=== PATIENT | female | born 1955 | race American Indian/Alaskan Native ===

== ENCOUNTER 2019-02-10 07:43 | Inpatient (IN) | payer MEDICAID ==
[2019-02-10] MEDS ORDERED: dilTIAZem 25 MG/5 ML INJ IV ONE (08:09)
--- NOTE | 2019-02-10 08:19 | Emergency Department Report ---
HPI - General Time Seen by Provider: 02/10/19 08:00 - [facility] HPI: Room 23 The patient is a 63-year-old female presenting with chief complaint of chest pain. Patient states she developed chest pain this morning that felt as though she was "hit with a rock." Patient denies shortness of breath, nausea/vomiting or diaphoresis. Patient states the chest pain lasts approximately 20 minutes. Patient also complains of pain in her left lower extremity for one week ED Past Medical Hx - Past Medical History Previous Medical History?: Yes Hx CVA: Yes Hx Deep Vein Thrombosis: Yes Hx GERD: Yes Hx Psychiatric Treatment: Yes (schizophrenia) Additional medical history: a fib, chronic leg pain - Surgical History Past Surgical History?: No - Family History Family history: no significant - Social History Smoking Status: Never Smoker Substance Use Type: None (patient denies illicit drug use) ED Review of Systems ROS: Stated complaint: LEG PAIN Other details as noted in HPI Constitutional: no symptoms reported Eyes: denies: eye pain ENT: denies: throat pain Respiratory: no symptoms reported Cardiovascular: chest pain Endocrine: no symptoms reported Gastrointestinal: denies: nausea, vomiting Genitourinary: denies: dysuria Musculoskeletal: denies: back pain Neurological: denies: headache Physical Exam - Physical Exam Vital Signs: Vital Signs 02/10/19 08:00 Temperature 98.1 F Pulse Rate 130 H Respiratory 14 Rate Blood Pressure 152/97 Blood Pressure 152/97 [Right] O2 Sat by Pulse 98 Oximetry Physical Exam: GENERAL: The patient is well-developed well-nourished female lying on stretcher not appearing to be in acute distress. [] HEENT: Normocephalic. Atraumatic. Extraocular motions are intact. Patient has moist mucous membranes. NECK: Supple. Trachea midline CHEST/LUNGS: Clear to auscultation. There is no respiratory distress noted. HEART/CARDIOVASCULAR: Irregularly irregular. There is tachycardia. There is no gallop rub or murmur. ABDOMEN: Abdomen is soft, nontender. Patient has normal bowel sounds. There is no abdominal distention. SKIN: There is no rash. There is mild left lower extremity edema. There is no diaphoresis. NEURO: The patient is awake, alert, and oriented. The patient is cooperative. The patient has normal speech MUSCULOSKELETAL: There is no evidence of acute injury. ED Course Vital Signs 02/10/19 08:00 Temperature 98.1 F Pulse Rate 130 H Respiratory 14 Rate Blood Pressure 152/97 Blood Pressure 152/97 [Right] O2 Sat by Pulse 98 Oximetry ED Medical Decision Making - Lab Data Result diagrams: 02/10/19 08:36 02/10/19 08:36 Laboratory Tests 02/10/19 02/10/19 02/10/19 08:36 08:36 08:36 WBC 4.1 L RBC 4.63 Hgb 14.7 H Hct 43.7 H MCV 94 MCH 32 MCHC 34 RDW 13.5 Plt Count 123 L Lymph % (Auto) 29.8 [place] % (Auto) 7.6 H Eos % (Auto) 0.3 Baso % (Auto) 0.7 Lymph # 1.2 [place] # 0.3 Eos # 0.0 Baso # 0.0 Seg Neutrophils % 61.6 Seg Neutrophils # 2.5 PT 12.7 INR 0.94 APTT 25.1 Sodium 142 Potassium 3.9 Chloride 101.1 Carbon Dioxide 21 L Anion Gap 24 BUN 11 Creatinine 0.7 Estimated GFR > 60 BUN/Creatinine Ratio 16 Glucose 89 Calcium 9.7 Magnesium 1.80 Total Creatine Kinase 247 H CK-MB (CK-2) 4.3 H CK-MB (CK-2) Rel Index 1.7 Troponin T < 0.010 NT-Pro-B Natriuret Pep 1554 H TSH Free T4 02/10/19 08:36 WBC RBC Hgb Hct MCV MCH MCHC RDW Plt Count Lymph % (Auto) [place] % (Auto) Eos % (Auto) Baso % (Auto) Lymph # [place] # Eos # Baso # Seg Neutrophils % Seg Neutrophils # PT INR APTT Sodium Potassium Chloride Carbon Dioxide Anion Gap BUN Creatinine Estimated GFR BUN/Creatinine Ratio Glucose Calcium Magnesium Total Creatine Kinase CK-MB (CK-2) CK-MB (CK-2) Rel Index Troponin T NT-Pro-B Natriuret Pep TSH 1.540 Free T4 1.47 H - EKG Data -: EKG Interpreted by Me Rate: tachycardia (137 bpm) - EKG Data When compared to previous EKG there are: changes noted Interpretation: other (atrial fibrillation with a rapid ventricular response) - Radiology Data Radiology results: report reviewed (CT chest (report discussed with radiologist via phone)), image reviewed (CT chest) CT chest (verbal report from radiologist) positive PE right upper lobe. Right upper lobe consolidation could be mass versus infection - Differential Diagnosis ACS, A. fib with RVR, DVT, PE, pericarditis Critical care attestation.: If time is entered above; I have spent that time in minutes in the direct care of this critically ill patient, excluding procedure time. ED Disposition Clinical Impression: Chest pain, Atrial fibrillation with rapid ventricular response, Pulmonary embolism Disposition: OP ADMIT IP TO THIS HOSP Is pt being admited?: Yes Does the pt Need Aspirin: No Condition: Fair Instructions: Chest Pain (ED) Time of Disposition: 11:25 (hospitalist paged (Dr Lopez))
[2019-02-10 08:46] LABS: Basophils % (Auto) 0.7 % (0.0-1.8); Eosinophils % (Auto) 0.3 % (0.0-4.3); Hematocrit 43.7 % (30.3-42.9); Hemoglobin 14.7 gm/dl (10.1-14.3); Lymphocytes # (Auto) 1.2 K/mm3 (1.2-5.4); Lymphocytes % (Auto) 29.8 % (13.4-35.0); Mean Corpuscular HGB Conc 34 % (30-34); Mean Corpuscular Volume 94 fl (79-97); Monocytes # (Auto) 0.3 K/mm3 (0.0-0.8); Monocytes % (Auto) 7.6 % (0.0-7.3); Platelet Count 123 K/mm3 (140-440); Red Blood Count 4.63 M/mm3 (3.65-5.03); Red Cell Distribution Width 13.5 % (13.2-15.2)
[2019-02-10 08:56] LABS: INR 0.94 (0.87-1.13); Partial Thromboplastin Time 25.1 Sec. (24.2-36.6)
[2019-02-10 09:16] LABS: Creatine Kinase MB 4.3 ng/mL (0.0-4.0)
[2019-02-10 09:20] LABS: BUN/Creatinine Ratio 16; Blood Urea Nitrogen 11 mg/dL (7-17); Calcium 9.7 mg/dL (8.4-10.2); Hemolysis Index 3
[2019-02-10 09:26] LABS: Free T4 (Free Thyroxine) 1.47 ng/dL (0.76-1.46)
--- NOTE | 2019-02-10 09:47 | Vascular Lab Report ---
DUPLEX DOPPLER LOWER EXTREMITY VEINS, LEFT INDICATION: pain. TECHNIQUE: Duplex doppler imaging was performed through the veins of the left lower extremity using venous compr ession and other maneuvers. COMPARISON: None available. FINDINGS: Common femoral vein: Nonocclusive thrombus. Superficial femoral vein: Occlusive thrombus. Popliteal vein: Occlusive thrombus. Calf veins: Occlusive thrombus. Additional findings: None. IMPRESSION: Extensive left lower extremity venous Doppler. Signer Name: Eliu Beltre MD Signed: 02/10/2019 9:42 AM Workstation Name: [id number]
[2019-02-10] MEDS ORDERED: dilTIAZem/D5W 100 MG/100 ML BAG IV SCH (10:00)
[2019-02-10] MEDS ORDERED: ENOXAPARIN 100 MG/1 ML INJ SUB-Q ONE (11:23)
--- NOTE | 2019-02-10 11:28 | Cat Scan Report ---
CTA CHEST WITH IV CONTRAST INDICATION: chest pain. TECHNIQUE: Axial CT images were obtained through the chest after injection of 100 mL Omnipaque 300 IV contrast. 3 plane MIP reconstructions were produced. All CT scans at this location are performed using CT dose reduction for ALARA by means of automated exposure control. COMPARISON: None available. FINDINGS: PULMONARY ARTERIES: The pulmonary arteries are well-opacified. There is segmental/subsegmental occlus peter PTE along the apical segment of the right upper lobe. The pulmonary arteries are otherwise patent . AORTA AND ARTERIES: The aorta is patent, normal in caliber and mildly calcified. Mild atherosclerosis is seen along the great vessels, which are patent. There is mild coronary atherosclerosis. MEDIASTINUM: No significant abnormality of the heart. No mass, lymphadenopathy or other significant a bnormality. LUNGS: There is biapical scarring. Posteriorly along the apical segment of the right lung is a massli ke area of consolidation versus a true solid lesion measuring 2.6 x 2.3 cm on image 72 of series 3. A noncalcified solid nodule is present along the superior segment of the right lower lobe measuring 8 mm on image 118 of series 3. Moderate emphysema is most significant along the right upper lobe. There is bibasilar atelectasis/scarring. No pneumothorax or pleural effusion is seen. ADDITIONAL FINDINGS: None. UPPER ABDOMEN: No acute findings. BONES: No significant osseous abnormality. IMPRESSION: 1. Right upper lobe segmental/subsegmental PTE without CT evidence of right heart strain. 2. Right upper lobe masslike consolidation versus a true solid lesion is nonspecific. Considerations include an evolving infarction, pneumonia and malignancy. Please correlate with the clinical findings . 3. 8 mm right lower lobe nodule as above. A follow-up CT of the chest without contrast in 6 months is recommended. 4. Additional findings as above. CRITICAL RESULT: Radiologist: Dr. Jay Time of Discovery: 10:15 LADLE PATCHER Time of Communication: 10:23 LADLE PATCHER Licensed Practitioner Receiving Report: Dr. Ba Read Back Performed: Yes. Signer Name: Tito Jay MD Signed: 02/10/2019 11:24 AM Workstation Name: [id number]
--- NOTE | 2019-02-10 21:47 | History and Physical Report ---
History of Present Illness Date of examination: 02/10/19 Date of admission: 02/10/19 11:29 Chief complaint: Sudden onset of chest pain lasting for 20 minutes prior to admission History of present illness: 53-year-old female with history of CVA, deep vein thrombosis, GERD and schizophrenia comes in for sudden onset of chest pain which lasted for about 20 minutes. It was a sharp pain 8 on a scale of 1-10. There is no diaphoresis, nausea or vomiting, shortness of breath. No radiation of the chest pain. No exacerbation or relieving factors. Patient also has chronic pain in left lower extremity. Past Medical History Previous Medical History?: Yes CVA: Yes Deep Vein Thrombosis: Yes GERD: Yes Psychiatric Treatment: Yes (schizophrenia) Afib, chronic leg pain Surgical History Past Surgical History?: No Family History Family history: no significant Social History Smoking Status: Never Smoker Substance Use Type: None (patient denies illicit drug use) Review of Systems ROS: Stated complaint: LEG PAIN Other details as noted in HPI Constitutional: no symptoms reported Eyes: denies: eye pain ENT: denies: throat pain Respiratory: no symptoms reported Cardiovascular: chest pain Endocrine: no symptoms reported Gastrointestinal: denies: nausea, vomiting Genitourinary: denies: dysuria Musculoskeletal: denies: back pain Neurological: denies: headache Medications and Allergies Allergies Allergy/AdvReac Type Severity Reaction Status Date / Time No Known Allergies Allergy Verified 02/10/19 09:47 Active Meds: Active Medications Diltiazem HCl (Cardizem/D5w 100mg/100ml) 100 mg in 100 mls @ 5 mls/hr IV TITR SINCERE; Protocol Last Titration: 02/10/19 16:48 Dose: 0 mg/hr, 0 mls/hr Documented by: Exam - Constitutional Vitals: Temp Pulse Resp BP Pulse Ox 98.3 F 114 H 16 118/76 98 02/10/19 20:20 02/10/19 20:20 02/10/19 20:20 02/10/19 20:20 02/10/19 20:20 General appearance: Present: mild distress, well-nourished - EENT Eyes: Present: PERRL ENT: hearing intact, clear oral mucosa - Neck Neck: Present: supple, normal ROM - Respiratory Respiratory effort: normal Respiratory: bilateral: CTA - Cardiovascular Heart rate: 130 Rhythm: irregularly irregular Heart Sounds: Present: S1 & S2. Absent: rub, click - Extremities Extremities: no ischemia, pulses intact, pulses symmetrical, No edema Peripheral Pulses: within normal limits - Abdominal General gastrointestinal: Present: soft, non-tender, non-distended, normal bowel sounds Female genitourinary: Present: normal - Integumentary Integumentary: Present: clear, warm, dry - Musculoskeletal Musculoskeletal: gait normal, strength equal bilaterally - Psychiatric Psychiatric: appropriate mood/affect, intact judgment & insight - Neurologic Neurologic: CNII-XII intact, moves all extremities - Allied Health Allied health notes reviewed: nursing, case management Results - Labs CBC & Chem 7: 02/10/19 08:36 02/10/19 08:36 Labs: Laboratory Last Values WBC 4.1 K/mm3 (4.5-11.0) L 02/10/19 08:36 RBC 4.63 M/mm3 (3.65-5.03) 02/10/19 08:36 Hgb 14.7 gm/dl (10.1-14.3) H 02/10/19 08:36 Hct 43.7 % (30.3-42.9) H 02/10/19 08:36 MCV 94 fl (79-97) 02/10/19 08:36 MCH 32 pg (28-32) 02/10/19 08:36 MCHC 34 % (30-34) 02/10/19 08:36 RDW 13.5 % (13.2-15.2) 02/10/19 08:36 Plt Count 123 K/mm3 (140-440) L 02/10/19 08:36 Lymph % (Auto) 29.8 % (13.4-35.0) 02/10/19 08:36 [place] % (Auto) 7.6 % (0.0-7.3) H 02/10/19 08:36 Eos % (Auto) 0.3 % (0.0-4.3) 02/10/19 08:36 Baso % (Auto) 0.7 % (0.0-1.8) 02/10/19 08:36 Lymph # 1.2 K/mm3 (1.2-5.4) 02/10/19 08:36 [place] # 0.3 K/mm3 (0.0-0.8) 02/10/19 08:36 Eos # 0.0 K/mm3 (0.0-0.4) 02/10/19 08:36 Baso # 0.0 K/mm3 (0.0-0.1) 02/10/19 08:36 Seg Neutrophils % 61.6 % (40.0-70.0) 02/10/19 08:36 Seg Neutrophils # 2.5 K/mm3 (1.8-7.7) 02/10/19 08:36 PT 12.7 Sec. (12.2-14.9) 02/10/19 08:36 INR 0.94 (0.87-1.13) 02/10/19 08:36 APTT 25.1 Sec. (24.2-36.6) 02/10/19 08:36 Sodium 142 mmol/L (137-145) 02/10/19 08:36 Potassium 3.9 mmol/L (3.6-5.0) 02/10/19 08:36 Chloride 101.1 mmol/L (98-107) 02/10/19 08:36 Carbon Dioxide 21 mmol/L (22-30) L 02/10/19 08:36 Anion Gap 24 mmol/L 02/10/19 08:36 BUN 11 mg/dL (7-17) 02/10/19 08:36 Creatinine 0.7 mg/dL (0.7-1.2) 02/10/19 08:36 Estimated GFR > 60 ml/min 02/10/19 08:36 BUN/Creatinine Ratio 16 % 02/10/19 08:36 Glucose 89 mg/dL (65-100) 02/10/19 08:36 Calcium 9.7 mg/dL (8.4-10.2) 02/10/19 08:36 Magnesium 1.80 mg/dL (1.7-2.3) 02/10/19 08:36 Total Creatine Kinase 247 units/L (30-135) H 02/10/19 08:36 CK-MB (CK-2) 4.3 ng/mL (0.0-4.0) H 02/10/19 08:36 CK-MB (CK-2) Rel Index 1.7 (0-4) 02/10/19 08:36 Troponin T < 0.010 ng/mL (0.00-0.029) 02/10/19 08:36 NT-Pro-B Natriuret Pep 1554 pg/mL (0-900) H 02/10/19 08:36 TSH 1.540 mlU/mL (0.270-4.200) 02/10/19 08:36 Free T4 1.47 ng/dL (0.76-1.46) H 02/10/19 08:36 - Imaging and Cardiology EKG: report reviewed (Atrial fibrillation with RVR, heart rate of 137.) Chest x-ray: report reviewed CT scan - chest: report reviewed Imaging and Cardiology: Duplex scan of lower extremity FINDINGS: Common femoral vein: Nonocclusive thrombus. Superficial femoral vein: Occlusive thrombus. Popliteal vein: Occlusive thrombus. Calf veins: Occlusive thrombus. Additional findings: None. IMPRESSION: Extensive left lower extremity venous Doppler. Chest CTA IMPRESSION: 1. Right upper lobe segmental/subsegmental PTE without CT evidence of right heart strain. 2. Right upper lobe masslike consolidation versus a true solid lesion is nonspecific. Considerations include an evolving infarction, pneumonia and malignancy. Please correlate with the c linical findings. 3. 8 mm right lower lobe nodule as above. A follow-up CT of the chest without contrast in 6 months is recommended. 4. Additional findings as above. Assessment and Plan Advance Directives: Yes (Full code) VTE prophylaxis?: Chemical Plan of care discussed with patient/family: Yes - Patient Problems (1) Atrial fibrillation with rapid ventricular response Current Visit: Yes Status: Acute Plan to address problem: Patient was initiated on diltiazem drip Patient was getting hypotensive Changed to amiodarone drip We will admit to ICU if necessary (2) Acute pulmonary embolism Current Visit: Yes Status: Acute Qualifiers: Acute cor pulmonale presence: without acute cor pulmonale Plan to address problem: Patient initiated on IV heparin protocol Vascular surgery consult requested Repeat CT chest at the time of discharge to rule out any malignancy (3) CHF (congestive heart failure) Current Visit: Yes Status: Chronic Qualifiers: Heart failure type: combined systolic and diastolic Plan to address problem: BNP elevated Lasix 40 mg once a day Cardiology consult Check echocardiogram for ejection fraction and valve function (4) Left leg DVT Current Visit: Yes Status: Acute Qualifiers: Affected thrombotic vein of extremity: femoral Chronicity: acute Qualified Code(s): I82.412 - Acute embolism and thrombosis of left femoral vein Plan to address problem: Patient on IV heparin protocol for DVT and PE (5) GERD (gastroesophageal reflux disease) Current Visit: Yes Status: Chronic Qualifiers: Esophagitis presence: without esophagitis Qualified Code(s): K21.9 - Gastro-esophageal reflux disease without esophagitis Plan to address problem: On famotidine 20 twice daily (6) History of CVA (cerebrovascular accident) Current Visit: Yes Status: Chronic Plan to address problem: Physical therapy if necessary (7) Schizophrenia Current Visit: Yes Status: Chronic Qualifiers: Schizophrenia type: unspecified Qualified Code(s): F20.9 - Schizophrenia, unspecified Plan to address problem: Home medications not reconciled Nursing staff was requested to put current home medications (8) DVT prophylaxis Current Visit: Yes Status: Acute Plan to address problem: Patient on heparin drip and GI prophylaxis
[2019-02-10] MEDS ORDERED: METOCLOPRAMIDE 10 MG/2 ML INJ IV PRN (21:57)
[2019-02-10] MEDS ORDERED: ACETAMINOPHEN 325 MG TAB PO PRN (21:57)
[2019-02-10] MEDS ORDERED: oxyCODONE /ACETAMINOPHEN 5-325MG TAB PO PRN (21:57)
[2019-02-10] MEDS ORDERED: HYDROmorphone 1 MG/1 ML INJ IV PRN (21:57)
[2019-02-10] MEDS ORDERED: ONDANSETRON 4 MG/2 ML INJ IV PRN (21:57)
[2019-02-10] MEDS ORDERED: HEPARIN 10,000 UNITS/10 ML VIAL IV ONE (22:00)
[2019-02-10] MEDS: FAMOTIDINE 20 MG TAB PO SCH (22:43)
[2019-02-10] MEDS: HEPARIN/ 0.45% NACL DRIP 25,000 UNIT/500 ML BAG IV SCH (22:43)
[2019-02-11] MEDS: AMIODARONE 900 MG in DEXTROSE 5% IN WATER 482 ML IV SCH (00:23)
[2019-02-11] MEDS: FUROSEMIDE 20 MG/2 ML INJ IV SCH (05:06)
[2019-02-11] MEDS ORDERED: FUROSEMIDE 40 MG/4 ML INJ IV SCH (06:00)
[2019-02-11 06:29] LABS: Hematocrit 37.8 % (30.3-42.9); Hemoglobin 12.8 gm/dl (10.1-14.3); Mean Corpuscular HGB Conc 34 % (30-34); Mean Corpuscular Volume 96 fl (79-97); Platelet Count 113 K/mm3 (140-440); Red Blood Count 3.93 M/mm3 (3.65-5.03); Red Cell Distribution Width 13.5 % (13.2-15.2)
[2019-02-11 06:37] LABS: Basophils % (Auto) 0.7 % (0.0-1.8); Eosinophils # (Auto) 0.1 K/mm3 (0.0-0.4); Eosinophils % (Auto) 2.6 % (0.0-4.3); Lymphocytes # (Auto) 1.6 K/mm3 (1.2-5.4); Lymphocytes % (Auto) 46.1 % (13.4-35.0); Monocytes # (Auto) 0.4 K/mm3 (0.0-0.8); Monocytes % (Auto) 12.1 % (0.0-7.3)
[2019-02-11 06:43] LABS: Partial Thromboplastin Time 28.3 Sec. (24.2-36.6)
[2019-02-11 06:44] LABS: INR 1.08 (0.87-1.13)
[2019-02-11 06:54] LABS: Alanine Aminotransferase 12 units/L (7-56); Albumin 3.6 g/dL (3.9-5); BUN/Creatinine Ratio 16; Blood Urea Nitrogen 14 mg/dL (7-17); Calcium 9.1 mg/dL (8.4-10.2); Hemolysis Index 19
[2019-02-11] MEDS: POTASSIUM CHLORIDE ER 10 MEQ TAB PO SCH (09:37)
[2019-02-11] MEDS: FAMOTIDINE 20 MG TAB PO SCH ×2 (09:37→22:08)
--- NOTE | 2019-02-11 12:36 | Consultation ---
History of Present Illness - Reason for Consult Consult date: 02/11/19 Pulmonary Embolus and Left Lower Extremity DVT Requesting physician: JAVIER BIRMINGHAM - History of Present Illness The patient is a 63-year-old female who had a CVA approximately 2 months ago resulting in left upper and lower extremity weakness who presented to the emergency department with complaints of chest pain. She states the chest pain with sudden and lasted approximately 20 minutes. She denied having any previous history of similar chest pain. Her workup revealed that she was in atrial f ibrillation and that she had a pulmonary embolus. Venous duplex of the left lower extremity revealed extensive DVT. The patient denies a previous history of DVT or noticing any recent swelling. She denies any prolonged travel or recent history of surgery or significant weight loss. Past History Past Medical History: atrial fib, DVT, hypertension, stroke, other (pulmonary embolus) Past Surgical History: No surgical history Family history: no significant family history Medications and Allergies Allergies Allergy/AdvReac Type Severity Reaction Status Date / Time No Known Allergies Allergy Verified 02/10/19 09:47 Active Meds: Active Medications Acetaminophen (Tylenol) 650 mg PO Q4H PRN PRN Reason: Pain MILD(1-3)/Fever >100.5/LORA Famotidine (Pepcid) 20 mg PO BID SINCERE Last Admin: 02/11/19 09:37 Dose: 20 mg Documented by: Furosemide (Lasix) 20 mg IV 0600 SINCERE Last Admin: 02/11/19 05:06 Dose: 20 mg Documented by: Hydromorphone HCl (Dilaudid) 1 mg IV Q3H PRN PRN Reason: Pain , Severe (7-10) Heparin Sodium/Sodium Chloride (Heparin/ 0.45% Nacl-25,000 Unit/500 Ml) 25,000 unit in 500 mls @ 21 mls/hr IV TITR SINCERE; Protocol Last Titration: 02/11/19 06:46 Dose: 1,200 units/hr, 24 mls/hr Documented by: Amiodarone HCl 900 mg/ (Dextrose) 500 mls @ 33.333 mls/hr IV DIRECT SINCERE; Protocol Last Titration: 02/11/19 06:40 Dose: 0.5 mg/min, 16.667 mls/hr Documented by: Metoclopramide HCl (Reglan) 10 mg IV Q6H PRN PRN Reason: Nausea And Vomiting Ondansetron HCl (Zofran) 4 mg IV Q3H PRN PRN Reason: Nausea And Vomiting Oxycodone/Acetaminophen (Percocet 5/325) 1 tab PO Q6H PRN PRN Reason: Pain, Moderate (4-6) Potassium Chloride (K-Dur) 10 meq PO QDAY [facility] Last Admin: 02/11/19 09:37 Dose: 10 meq Documented by: Sodium Chloride (Sodium Chloride Flush Syringe 10 Ml) 10 ml IV BID [facility] Last Admin: 02/11/19 09:37 Dose: 10 ml Documented by: Sodium Chloride (Sodium Chloride Flush Syringe 10 Ml) 10 ml IV PRN PRN PRN Reason: LINE FLUSH Review of Systems All systems: negative Exam - Constitutional Vitals: Temp Pulse Resp BP Pulse Ox 97.5 F L 129 H 18 109/84 99 02/11/19 08:02 02/11/19 08:02 02/11/19 08:02 02/11/19 08:02 02/11/19 08:02 General appearance: Present: no acute distress - Neck Neck: Present: supple - Respiratory Respiratory effort: normal - Cardiovascular Rhythm: irregularly irregular - Extremities Extremities: no ischemia Extremity abnormal: edema (Left lower extremity) - Abdominal General gastrointestinal: Present: soft, non-tender Results - Labs CBC & Chem 7: 02/11/19 05:37 02/11/19 05:37 Labs: Abnormal lab results 02/11/19 02/11/19 02/11/19 Range/Units 05:37 05:37 05:37 WBC 3.7 L (4.5-11.0) K/mm3 MCH 33 H (28-32) pg Plt Count 113 L (140-440) K/mm3 Lymph % (Auto) 46.1 H (13.4-35.0) % [place] % (Auto) 12.1 H (0.0-7.3) % Seg Neutrophils % 38.5 L (40.0-70.0) % Seg Neutrophils # 1.4 L (1.8-7.7) K/mm3 Heparin Anti-Xa Level 0.11 L (0.3-0.7) U.I./ml Glucose 101 H (65-100) mg/dL Albumin 3.6 L (3.9-5) g/dL - Imaging and Cardiology EKG: report reviewed, image reviewed Assessment and Plan The patient has a left leg DVT with a small PE that is no causing any right heart strain. She is tolerating anticoagulation at this time. Recommend converting to oral anticoagulation and continuing for a minimum of 6 months for treatment of the pulmonary embolus. Would also recommend a hypercoagulable workup although the DVT/PE may be secondary to her being more sedentary secondary to the CVA and left side weakness. She ultimately may require anticoagulation senior living if she is hypercoagulable or if she requires anticoagulation for management of her atrial fibrillation, will defer to cardiology for that recommendation.
[2019-02-11 12:52] LABS: Hematocrit 38.9 % (30.3-42.9); Hemoglobin 12.9 gm/dl (10.1-14.3)
--- NOTE | 2019-02-11 12:55 | Consultation ---
History of Present Illness Consult date: 02/11/19 Requesting physician: JAVIER BIRMINGHAM Consult reason: atrial fibrillation, congestive heart failure History of present illness: The pt is a 63-year-old female with history of CVA, deep vein thrombosis, GERD and schizophrenia. She is previously unknown to our practice. She presented with c/o chest pain for approx 1 day prior to arrival. She describes her chest pain as an intermittent left-sided lower chest sharp and stabbing pain. She denies any SOB, palpitations, n/v, diaphoresis, dizziness or syncope. Pt denies any kn own prior cardiac issues. Chest CTA shows RUL PE and RUL masslike consolidation v. solid lesion. Also found to have LLE DVT. Pt was noted to have atrial fibrillation with RVR and thus cardiology has been consulted. Pt has been initiated on heparin gtt and amio gtt. On evaluation, she is in AFib/AFlutter with HR 100s - 120s. Past History Past Medical History: DVT, hypertension, stroke, other (pulmonary embolus) Past Surgical History: No surgical history Family history: no significant family history Medications and Allergies Allergies Allergy/AdvReac Type Severity Reaction Status Date / Time No Known Allergies Allergy Verified 02/10/19 09:47 Active Meds: Active Medications Acetaminophen (Tylenol) 650 mg PO Q4H PRN PRN Reason: Pain MILD(1-3)/Fever >100.5/LORA Famotidine (Pepcid) 20 mg PO BID SINCERE Last Admin: 02/11/19 09:37 Dose: 20 mg Documented by: Furosemide (Lasix) 20 mg IV 0600 SINCERE Last Admin: 02/11/19 05:06 Dose: 20 mg Documented by: Hydromorphone HCl (Dilaudid) 1 mg IV Q3H PRN PRN Reason: Pain , Severe (7-10) Heparin Sodium/Sodium Chloride (Heparin/ 0.45% Nacl-25,000 Unit/500 Ml) 25,000 unit in 500 mls @ 21 mls/hr IV TITR SINCERE; Protocol Last Titration: 02/11/19 06:46 Dose: 1,200 units/hr, 24 mls/hr Documented by: Amiodarone HCl 900 mg/ (Dextrose) 500 mls @ 33.333 mls/hr IV DIRECT SINCERE; Pr otocol Last Titration: 02/11/19 06:40 Dose: 0.5 mg/min, 16.667 mls/hr Documented by: Metoclopramide HCl (Reglan) 10 mg IV Q6H PRN PRN Reason: Nausea And Vomiting Ondansetron HCl (Zofran) 4 mg IV Q3H PRN PRN Reason: Nausea And Vomiting Oxycodone/Acetaminophen (Percocet 5/325) 1 tab PO Q6H PRN PRN Reason: Pain, Moderate (4-6) Potassium Chloride (K-Dur) 10 meq PO QDAY [facility] Last Admin: 02/11/19 09:37 Dose: 10 meq Documented by: Sodium Chloride (Sodium Chloride Flush Syringe 10 Ml) 10 ml IV BID [facility] Last Admin: 02/11/19 09:37 Dose: 10 ml Documented by: Sodium Chloride (Sodium Chloride Flush Syringe 10 Ml) 10 ml IV PRN PRN PRN Reason: LINE FLUSH Review of Systems Constitutional: no weight loss, no weight gain, no fever, no chills, no sweats Ears, nose, mouth and throat: no ear pain, no nose pain, no sinus pressure, no sinus pain Cardiovascular: chest pain, no orthopnea, no palpitations, no rapid/irregular heart beat, no edema, no syncope, no lightheadedness, no shortness of breath, no dyspnea on exertion, no high blood pressure Respiratory: no cough, no shortness of breath, no dyspnea on exertion, no congestion, no wheezing, no pain on inspiration Gastrointestinal: no abdominal pain, no nausea, no vomiting, no diarrhea, no c onstipation, no change in bowel habits Genitourinary Female: no pelvic pain, no flank pain, no dysuria, no urinary frequency, no urgency Musculoskeletal: no neck stiffness, no neck pain, no shooting arm pain, no arm numbness/tingling, no low back pain, no shooting leg pain Integumentary: no rash, no pruritis, no redness, no sores, no wounds Neurological: no head injury, no paralysis, no weakness, no parathesias, no numbness, no tingling, no seizures, no syncope Psychiatric: no anxiety Endocrine: no cold intolerance, no heat intolerance Hematologic/Lymphatic: no easy bruising, no easy bleeding Allergic/Immunologic: no urticaria, no wheezing Physical Examination Vital Signs Temp Pulse Resp BP Pulse Ox 98.1 F 137 H 20 152/97 100 02/10/19 08:00 02/10/19 08:00 02/10/19 08:00 02/10/19 08:00 02/10/19 08:00 General appearance: no acute distress HEENT: Positive: PERRL, Normocephaly, Mucus Membranes Moist Neck: Positive: neck supple, trachea midline Cardiac: Positive: irregularly irregular, S1/S2 Lungs: Positive: Decreased Breath Sounds Neuro: Positive: Grossly Intact Abdomen: Negative: Tender Skin: Negative: Rash Musculoskeletal: No Pain Extremities: Absent: edema Results 02/11/19 12:24 02/11/19 05:37 Cardiac Enzymes 02/11/19 Range/Units 05:37 AST 15 (5-40) units/L Coagulation 02/11/19 Range/Units 05:37 PT 14.1 (12.2-14.9) Sec. INR 1.08 (0.87-1.13) APTT 28.3 (24.2-36.6) Sec. CBC 02/11/19 02/11/19 Range/Units 05:37 12:24 WBC 3.7 L (4.5-11.0) K/mm3 RBC 3.93 (3.65-5.03) M/mm3 Hgb 12.8 12.9 (10.1-14.3) gm/dl Hct 37.8 38.9 (30.3-42.9) % Plt Count 113 L 117 L (140-440) K/mm3 Lymph # 1.6 (1.2-5.4) K/mm3 Robeson # 0.4 (0.0-0.8) K/mm3 Eos # 0.1 (0.0-0.4) K/mm3 Baso # 0.0 (0.0-0.1) K/mm3 Comprehensive Metabolic Panel 02/11/19 Range/Units 05:37 Sodium 142 (137-145) mmol/L Potassium 3.6 (3.6-5.0) mmol/L Chloride 106.9 (98-107) mmol/L Carbon Dioxide 22 (22-30) mmol/L BUN 14 (7-17) mg/dL Creatinine 0.9 (0.7-1.2) mg/dL Glucose 101 H (65-100) mg/dL Calcium 9.1 (8.4-10.2) mg/dL AST 15 (5-40) units/L ALT 12 (7-56) units/L Alkaline Phosphatase 80 (35-129) units/L Total Protein 6.4 (6.3-8.2) g/dL Albumin 3.6 L (3.9-5) g/dL - Imaging and Cardiology Echo: report reviewed EKG: report reviewed, image reviewed Assessment and Plan Echo reviewed - EF 40-45%, LA mild to mod dilated, RV mildly dilated, RA mildly dilated, no evidence of RV strain. BPs are borderline low, will continue IV amio at this time. Pt is currently receiving heparin gtt in setting of PE, DVT and AFib. She would benefit from senior living systemic AC in regards to AFib. However, she is noted to have lung mass. Recommend pulmonary consultation - ? biopsy. Will defer initiation of NOAC until w/u is complete, cont heparin gtt in the interim. Further recs to follow per hospital course. The patient has been seen in conjunction with Dr. Marks who agrees with the assessment and plan of care. - Patient Problems (1) Acute pulmonary embolism Current Visit: Yes Status: Acute Qualifiers: Acute cor pulmonale presence: without acute cor pulmonale (2) Lung mass Current Visit: Yes Status: Acute (3) Atrial fibrillation with rapid ventricular response Current Visit: Yes Status: Acute (4) Chest pain Current Visit: Yes Status: Resolved (5) Left leg DVT Current Visit: Yes Status: Acute Qualifiers: Affected thrombotic vein of extremity: femoral Chronicity: acute Qualif ied Code(s): I82.412 - Acute embolism and thrombosis of left femoral vein (6) History of CVA (cerebrovascular accident) Current Visit: Yes Status: Chronic (7) Schizophrenia Current Visit: Yes Status: Chronic Qualifiers: Schizophrenia type: unspecified Qualified Code(s): F20.9 - Schizophrenia, unspecified (8) Cardiomyopathy Current Visit: Yes Status: Chronic
[2019-02-11] MEDS: HEPARIN/ 0.45% NACL DRIP 25,000 UNIT/500 ML BAG IV SCH (13:22)
--- NOTE | 2019-02-11 16:50 | Progress Note ---
Assessment and Plan / Atrial fibrillation with rapid ventricular response Patient on amiodarone and heparin drip cardiology consulted / Acute pulmonary embolism Patient initiated on IV heparin protocol Vascular surgery consult requested - no intervention needed /RUL masslike consolidation v. solid lesion Repeat CT chest at the time of discharge to rule out any malignancy Pulmonary consulted /Acute CHF (congestive heart failure) EF 40-45% BNP elevated Lasix 40 mg once a day Cardiology consulted / Left leg DVT Patient on IV heparin protocol for DVT and PE / GERD (gastroesophageal reflux disease) On famotidine 20 twice daily / History of CVA (cerebrovascular accident) Physical therapy if necessary /Schizophrenia Home medications not reconciled Nursing staff was requested to put current home medications / DVT prophylaxis Patient on heparin drip and GI prophylaxis Brief History: The pt is a 63-year-old female with history of CVA, deep vein thrombosis, GERD and schizophrenia presented with c/o chest pain for approx 1 day prior to arrival. Chest CTA shows RUL PE and RUL masslike consolidation v. solid lesion. Also found to have LLE DVT. Pt was noted to have atrial fibrillation with RVR and initiated on heparin gtt and amio gtt. Hospitalist Physical exam: GENERAL: well-developed and well-nourished AAF lying on bed appeared to be in no discomfort. HEENT: Normocephalic. Atraumatic. No conjunctival congestion or icterus. Patient has moist mucous membranes. NECK: Supple. Trachea midline. CHEST/LUNGS: Clear to auscultated bilaterally, breathing nonlabored. No wheezes crackles or rhonchi. HEART/CARDIOVASCULAR: Regular in rate and rhythm. S1 and S2 positive. ABDOMEN: Abdomen is soft, nontender. Patient has normal bowel sounds. SKIN: There is no rash. Warm and dry. NEURO: No focal motor deficit. Follows command. MUSCULOSKELETAL: No joint effusion or tenderness. EXTRIMITY: + LLE swelling, no cyanosis or clubbing. PSYCH: Cooperative. Subjective Date of service: 02/11/19 Interval history: Patient seen and examined. Medical records and medication list reviewed. No acute event overnight noted by the RN. Patient denies any chest pain or difficulty breathing. Patient is tolerating diet. Discussed plan of care at bedside with patient. Objective - Constitutional Vitals: Vital Signs - 12hr 02/11/19 02/11/19 02/11/19 08:02 09:00 12:03 Temperature 97.5 F L 98.5 F Pulse Rate 129 H 108 H 118 H Respiratory 18 18 Rate Blood Pressure 109/84 120/82 O2 Sat by Pulse 99 95 Oximetry - Labs CBC & Chem 7: 02/11/19 12:24 02/11/19 05:37 Labs: Abnormal lab results 02/11/19 02/11/19 02/11/19 Range/Units 05:37 05:37 05:37 WBC 3.7 L (4.5-11.0) K/mm3 MCH 33 H (28-32) pg Plt Count 113 L (140-440) K/mm3 Lymph % (Auto) 46.1 H (13.4-35.0) % Winston % (Auto) 12.1 H (0.0-7.3) % Seg Neutrophils % 38.5 L (40.0-70.0) % Seg Neutrophils # 1.4 L (1.8-7.7) K/mm3 Heparin Anti-Xa Level 0.11 L (0.3-0.7) U.I./ml Glucose 101 H (65-100) mg/dL Albumin 3.6 L (3.9-5) g/dL 02/11/19 Range/Units 12:24 WBC (4.5-11.0) K/mm3 MCH (28-32) pg Plt Count 117 L (140-440) K/mm3 Lymph % (Auto) (13.4-35.0) % Winston % (Auto) (0.0-7.3) % Seg Neutrophils % (40.0-70.0) % Seg Neutrophils # (1.8-7.7) K/mm3 Heparin Anti-Xa Level (0.3-0.7) U.I./ml Glucose (65-100) mg/dL Albumin (3.9-5) g/dL
[2019-02-12] MEDS: HEPARIN/ 0.45% NACL DRIP 25,000 UNIT/500 ML BAG IV SCH (04:02)
[2019-02-12] MEDS: AMIODARONE 900 MG in DEXTROSE 5% IN WATER 482 ML IV SCH (04:05)
[2019-02-12 04:31] LABS: Hematocrit 40.2 % (30.3-42.9); Hemoglobin 13.4 gm/dl (10.1-14.3)
[2019-02-12] MEDS: FUROSEMIDE 20 MG/2 ML INJ IV SCH (06:15)
[2019-02-12] MEDS: FAMOTIDINE 20 MG TAB PO SCH ×2 (09:35→21:12)
[2019-02-12] MEDS: POTASSIUM CHLORIDE ER 10 MEQ TAB PO SCH (09:35)
--- NOTE | 2019-02-12 09:58 | Progress Note ---
Assessment and Plan Will discontinue amiodarone drip and initiate PO amiodarone. Continue Heparin and other cardiac management. Will defer to neurology for recommendations regarding OAC. The patient has been seen in conjunction with Dr. Wolfe, who agrees with the assessment and plan. - Patient Problems (1) Acute pulmonary embolism Current Visit: Yes Status: Acute Qualifiers: Acute cor pulmonale presence: without acute cor pulmonale (2) Atrial fibrillation with rapid ventricular response Current Visit: Yes Status: Acute (3) Left leg DVT Current Visit: Yes Status: Acute Qualifiers: Affected thrombotic vein of extremity: femoral Chronicity: acute Qualified Code(s): I82.412 - Acute embolism and thrombosis of left femoral vein (4) Lung mass Current Visit: Yes Status: Acute Subjective Date of service: 02/12/19 Interval history: The patient is lying in bed in NAD. She provides only one-word answers to questions this morning. Per RN, she refused second IV that would allow for administration of heparin and amiodarone. Telemetry reviewed - afib in 120s. Objective Last Vital Signs Temp 98.4 F 02/12/19 07:34 Pulse 106 H 02/12/19 07:34 Resp 18 02/12/19 07:34 BP 136/97 02/12/19 07:34 Pulse Ox 93 02/12/19 07:34 - Physical Examination General: No Apparent Distress HEENT: Positive: PERRL, Normocephaly, Mucus Membranes Moist Neck: Positive: neck supple, trachea midline Cardiac: Positive: irregularly irregular Lungs: Positive: Normal Exam Neuro: Positive: Grossly Intact Abdomen: Positive: Unremarkable. Negative: Tender /Rectal: Other (deferred) Skin: Positive: Clear. Negative: Rash Musculoskeletal: No Pain Extremities: Present: normal. Absent: edema - Labs and Meds CBC 02/11/19 02/12/19 Range/Units 12:24 03:34 Hgb 12.9 13.4 (10.1-14.3) gm/dl Hct 38.9 40.2 (30.3-42.9) % Plt Count 117 L 125 L (140-440) K/mm3 - Imaging and Cardiology EKG: report reviewed, image reviewed Echo: report reviewed - Telemetry EKG Rhythm: Atrial Fibrillation
--- NOTE | 2019-02-12 12:21 | Progress Note ---
Assessment and Plan Assessment and plan: -- Atrial fibrillation with rapid ventricular response Patient on amiodarone and heparin drip Change amiodarone to oral,cardiology following --Acute pulmonary embolism Patient initiated on IV heparin protocol Vascular evaluated ,no intervention needed --Left leg DVT; IV heparin protocol for DVT and PE --RUL masslike consolidation v. solid lesion CT chest at the time of discharge to rule out any malignancy Pulmonary consulted --Acute systolic CHF (congestive heart failure) EF 40-45% Continue CHF medications, cardiology following --GERD (gastroesophageal reflux disease) On famotidine 20 twice daily --History of CVA (cerebrovascular accident) 3 months ago Physical therapy if necessary, check medical records from [place] --Schizophrenia: Continue current management --DVT prophylaxis Patient on heparin drip and GI prophylaxis Closely monitor and adjust management as needed [facility] from [place] Possible discharge in 1 to 2 days if stable Plan of care reviewed with the patient and her nurse History Interval history: Patient seen and examined medical records reviewed Patient feels slightly better no new complaints Patient with A. fib with rapid ventricular rate PE and DVT On amiodarone drip changed to oral this morning and heparin drip Patient feels slightly better Vital signs reviewed Hospitalist Physical - Constitutional Vitals: Temp Pulse Resp BP Pulse Ox 98.4 F 106 H 18 136/97 93 02/12/19 07:34 02/12/19 07:34 02/12/19 07:34 02/12/19 07:34 02/12/19 07:34 General appearance: Present: no acute distress, well-nourished, obese - EENT Eyes: Present: PERRL, EOM intact - Neck Neck: Present: supple, normal ROM - Respiratory Respiratory effort: normal Respiratory: bilateral: diminished, rhonchi, negative: rales, wheezing - Cardiovascular Rhythm: regular Heart Sounds: Present: S1 & S2 - Extremities Extremities: no ischemia, pulses intact - Abdominal General gastrointestinal: soft, non-tender, non-distended, normal bowel sounds - Integumentary Integumentary: Present: clear, warm - Psychiatric Psychiatric: appropriate mood/affect, cooperative - Neurologic Neurologic: CNII-XII intact, moves all extremities Results - Labs CBC & Chem 7: 02/12/19 03:34 02/11/19 05:37 Labs: Laboratory Last Values WBC 3.7 K/mm3 (4.5-11.0) L 02/11/19 05:37 RBC 3.93 M/mm3 (3.65-5.03) 02/11/19 05:37 Hgb 13.4 gm/dl (10.1-14.3) 02/12/19 03:34 Hct 40.2 % (30.3-42.9) 02/12/19 03:34 MCV 96 fl (79-97) 02/11/19 05:37 MCH 33 pg (28-32) H 02/11/19 05:37 MCHC 34 % (30-34) 02/11/19 05:37 RDW 13.5 % (13.2-15.2) 02/11/19 05:37 Plt Count 125 K/mm3 (140-440) L 02/12/19 03:34 Lymph % (Auto) 46.1 % (13.4-35.0) H 02/11/19 05:37 Nobles % (Auto) 12.1 % (0.0-7.3) H 02/11/19 05:37 Eos % (Auto) 2.6 % (0.0-4.3) 02/11/19 05:37 Baso % (Auto) 0.7 % (0.0-1.8) 02/11/19 05:37 Lymph # 1.6 K/mm3 (1.2-5.4) 02/11/19 05:37 Nobles # 0.4 K/mm3 (0.0-0.8) 02/11/19 05:37 Eos # 0.1 K/mm3 (0.0-0.4) 02/11/19 05:37 Baso # 0.0 K/mm3 (0.0-0.1) 02/11/19 05:37 Seg Neutrophils % 38.5 % (40.0-70.0) L 02/11/19 05:37 Seg Neutrophils # 1.4 K/mm3 (1.8-7.7) L 02/11/19 05:37 PT 14.1 Sec. (12.2-14.9) 02/11/19 05:37 INR 1.08 (0.87-1.13) 02/11/19 05:37 APTT 28.3 Sec. (24.2-36.6) 02/11/19 05:37 Heparin Anti-Xa Level 0.50 U.I./ml (0.3-0.7) 02/11/19 12:24 Sodium 142 mmol/L (137-145) 02/11/19 05:37 Potassium 3.6 mmol/L (3.6-5.0) 02/11/19 05:37 Chloride 106.9 mmol/L (98-107) 02/11/19 05:37 Carbon Dioxide 22 mmol/L (22-30) 02/11/19 05:37 Anion Gap 17 mmol/L 02/11/19 05:37 BUN 14 mg/dL (7-17) 02/11/19 05:37 Creatinine 0.9 mg/dL (0.7-1.2) 02/11/19 05:37 Estimated GFR > 60 ml/min 02/11/19 05:37 BUN/Creatinine Ratio 16 % 02/11/19 05:37 Glucose 101 mg/dL (65-100) H 02/11/19 05:37 Hemoglobin A1c 5.2 % (4-6) 02/11/19 05:37 Calcium 9.1 mg/dL (8.4-10.2) 02/11/19 05:37 Magnesium 1.80 mg/dL (1.7-2.3) 02/10/19 08:36 Total Bilirubin 0.60 mg/dL (0.1-1.2) 02/11/19 05:37 AST 15 units/L (5-40) 02/11/19 05:37 ALT 12 units/L (7-56) 02/11/19 05:37 Alkaline Phosphatase 80 units/L (35-129) 02/11/19 05:37 Total Creatine Kinase 247 units/L (30-135) H 02/10/19 08:36 CK-MB (CK-2) 4.3 ng/mL (0.0-4.0) H 02/10/19 08:36 CK-MB (CK-2) Rel Index 1.7 (0-4) 02/10/19 08:36 Troponin T < 0.010 ng/mL (0.00-0.029) 02/10/19 08:36 NT-Pro-B Natriuret Pep 1554 pg/mL (0-900) H 02/10/19 08:36 Total Protein 6.4 g/dL (6.3-8.2) 02/11/19 05:37 Albumin 3.6 g/dL (3.9-5) L 02/11/19 05:37 Albumin/Globulin Ratio 1.3 % 02/11/19 05:37 TSH 1.540 mlU/mL (0.270-4.200) 02/10/19 08:36 Free T4 1.47 ng/dL (0.76-1.46) H 02/10/19 08:36 Active Medications - Current Medications Current Medications: Generic Name Dose Route Start Last Admin Trade Name Freq PRN Reason Stop Dose Admin Acetaminophen 650 mg 02/10/19 21:57 02/11/19 19:37 Tylenol PO 650 mg Q4H PRN Administration Pain MILD(1-3)/Fever >100.5/LORA Amiodarone HCl 400 mg 02/12/19 10:00 Cordarone PO BID SINCERE Famotidine 20 mg 02/10/19 22:00 02/12/19 09:35 Pepcid PO 20 mg BID SINCERE Administration Furosemide 20 mg 02/11/19 06:00 02/12/19 06:15 Lasix IV 20 mg 0600 SINCERE Administration Hydromorphone HCl 1 mg 02/10/19 21:57 Dilaudid IV Q3H PRN Pain , Severe (7-10) Heparin Sodium/Sodium Chloride 25,000 unit in 500 mls @ 21 mls/hr 02/10/19 22:00 02/12/19 04:02 Heparin/ 0.45% Nacl-25,000 Unit/500 Ml IV 1,200 units/hr TITR SINCERE 24 mls/hr Administration Protocol 1,050 UNITS/HR Amiodarone HCl 900 mg/ 500 mls @ 33.333 mls/hr 02/10/19 23:00 02/12/19 04:05 Dextrose IV 0.5 mg/min DIRECT SINCERE 16.667 mls/hr Administration Protocol 1 MG/MIN Metoclopramide HCl 10 mg 02/10/19 21:57 Reglan IV Q6H PRN Nausea And Vomiting Ondansetron HCl 4 mg 02/10/19 21:57 Zofran IV Q3H PRN Nausea And Vomiting Oxycodone/Acetaminophen 1 tab 02/10/19 21:57 Percocet 5/325 PO Q6H PRN Pain, Moderate (4-6) Potassium Chloride 10 meq 02/11/19 10:00 02/12/19 09:35 K-Dur PO 10 meq QDAY SINCERE Administration Sodium Chloride 10 ml 02/10/19 22:00 02/12/19 09:35 Sodium Chloride Flush Syringe 10 Ml IV 10 ml BID SINCERE Administration Sodium Chloride 10 ml 02/10/19 21:57 Sodium Chloride Flush Syringe 10 Ml IV PRN PRN LINE FLUSH Nutrition/Malnutrition Assess - Dietary Evaluation Nutrition/Malnutrition Findings: Nutrition Notes Start: 02/11/19 10:47 Freq: Status: Active Protocol: Document 02/11/19 10:47 CT (Rec: 02/11/19 10:55 CT [id number]) Co-Sign 02/11/19 10:47 LP Nutrition Notes Need for Assessment generated from: MD Order,dumpster operator,MST Initial or Follow up Brief Note Current Diagnosis Heart Failure,Stroke Other Pertinent Diagnosis DVT, GERD, a-fib, PE, chronic leg pain, schizoprenia Current Diet Cardiac Labs/Tests Glu 101 Pertinent Medications Heparin 1/2NS 21 ml/hr Lasix Kdur Height 5 ft 4 in Weight 72.575 kg Usual Body Weight 72.575 kg [place] Body Weight (kg) 54.54 BMI 27.4 Intake Prior to Admission Good Weight Status Overweight Subjective/Other Information MD consult for malnutrition, RN MST screen. Pt stated UBW is 160 lbs, and has not noticed any wt loss. Pt was eating well [employer] and ate 75% of breakfast this am. Pt was asking for double portions. Pt stated that she does not like ensure and did not want to receive anymore. Pt states that she has a good appetite and that "the hospital is not giving her enough food." Burn Absent Trauma Absent GI Symptoms None Food Allergy No Current % PO Good (75-100%) Minimum of two criteria No physical signs of malnutrition Nutrition Intervention Anticipated Discharge Needs: Cardiac Revisit per MD consult or patient Sign Off request:
[2019-02-12] MEDS: AMIODARONE 200 MG TAB PO SCH ×2 (12:55→21:12)
--- NOTE | 2019-02-12 12:56 | Consultation ---
History of Present Illness Consult date: 02/12/19 Requesting physician: JACKSON XIONG Reason for consult: pulmonary embolism, other (RUL Lung Mass ) History of present illness: PULMONARY/CCM CONSULT NOTE (Full dictation # [id number]) Please see dictated notes for full details Past History Past Medical History: DVT, hypertension, stroke, other (pulmonary embolus) Past Surgical History: No surgical history Family history: no significant family history Medications and Allergies Allergies Allergy/AdvReac Type Severity Reaction Status Date / Time No Known Allergies Allergy Verified 02/10/19 09:47 Home Medications Medication Instructions Recorded Confirmed Last Taken Type No Known Home Medications [No 02/12/19 02/12/19 Unknown History Reported Home Medications] Active Meds: Active Medications Acetaminophen (Tylenol) 650 mg PO Q4H PRN PRN Reason: Pain MILD(1-3)/Fever >100.5/LORA Last Admin: 02/11/19 19:37 Dose: 650 mg Documented by: Amiodarone HCl (Cordarone) 400 mg PO BID [facility] Famotidine (Pepcid) 20 mg PO BID [facility] Last Admin: 02/12/19 09:35 Dose: 20 mg Documented by: Furosemide (Lasix) 20 mg IV 0600 SINCERE Last Admin: 02/12/19 06:15 Dose: 20 mg Documented by: Hydromorphone HCl (Dilaudid) 1 mg IV Q3H PRN PRN Reason: Pain , Severe (7-10) Heparin Sodium/Sodium Chloride (Heparin/ 0.45% Nacl-25,000 Unit/500 Ml) 25,000 unit in 500 mls @ 21 mls/hr IV TITR SINCERE; Protocol Last Admin: 02/12/19 04:02 Dose: 1,200 units/hr, 24 mls/hr Documented by: Amiodarone HCl 900 mg/ (Dextrose) 500 mls @ 33.333 mls/hr IV DIRECT SINCERE; Protocol Last Admin: 02/12/19 04:05 Dose: 0.5 mg/min, 16.667 mls/hr Documented by: Metoclopramide HCl (Reglan) 10 mg IV Q6H PRN PRN Reason: Nausea And Vomiting Ondansetron HCl (Zofran) 4 mg IV Q3H PRN PRN Reason: Nausea And Vomiting Oxycodone/Acetaminophen (Percocet 5/325) 1 tab PO Q6H PRN PRN Reason: Pain, Moderate (4-6) Potassium Chloride (K-Dur) 10 meq PO QDAY [facility] Last Admin: 02/12/19 09:35 Dose: 10 meq Documented by: Sodium Chloride (Sodium Chloride Flush Syringe 10 Ml) 10 ml IV BID [facility] Last Admin: 02/12/19 09:35 Dose: 10 ml Documented by: Sodium Chloride (Sodium Chloride Flush Syringe 10 Ml) 10 ml IV PRN PRN PRN Reason: LINE FLUSH Physical Examination Vital signs: Vital Signs Temp Pulse Resp BP Pulse Ox 98.1 F 137 H 20 152/97 100 02/10/19 08:00 02/10/19 08:00 02/10/19 08:00 02/10/19 08:00 02/10/19 08:00 Results - Laboratory Findings CBC and BMP: 02/12/19 03:34 02/11/19 05:37 PT/INR, D-dimer PT 14.1 Sec. (12.2-14.9) 02/11/19 05:37 INR 1.08 (0.87-1.13) 02/11/19 05:37 Abnormal lab findings: Abnormal Labs 02/10/19 02/10/19 02/10/19 08:36 08:36 08:36 WBC 4.1 L Hgb 14.7 H Hct 43.7 H MCH Plt Count 123 L Lymph % (Auto) Alexander % (Auto) 7.6 H Seg Neutrophils % Seg Neutrophils # Heparin Anti-Xa Level Carbon Dioxide 21 L Glucose Total Creatine Kinase 247 H CK-MB (CK-2) 4.3 H NT-Pro-B Natriuret Pep 1554 H Albumin Free T4 1.47 H 02/11/19 02/11/19 02/11/19 05:37 05:37 05:37 WBC 3.7 L Hgb Hct MCH 33 H Plt Count 113 L Lymph % (Auto) 46.1 H Alexander % (Auto) 12.1 H Seg Neutrophils % 38.5 L Seg Neutrophils # 1.4 L Heparin Anti-Xa Level 0.11 L Carbon Dioxide Glucose 101 H Total Creatine Kinase CK-MB (CK-2) NT-Pro-B Natriuret Pep Albumin 3.6 L Free T4 02/11/19 02/12/19 12:24 03:34 WBC Hgb Hct MCH Plt Count 117 L 125 L Lymph % (Auto) Alexander % (Auto) Seg Neutrophils % Seg Neutrophils # Heparin Anti-Xa Level Carbon Dioxide Glucose Total Creatine Kinase CK-MB (CK-2) NT-Pro-B Natriuret Pep Albumin Free T4
--- NOTE | 2019-02-12 18:09 | Event Note ---
Date: 02/12/19 Patient is unable to maintain IV access for heparin drip, Patient is refusing serial blood tests Will DC heparin drip, start on full dose Lovenox 1 mg/kg body weight every 12 hours We will also request medical records from [place], to make decision regarding oral anticoagulants In view of recent CVA[3 months ago] where she was treated at [facility] Closely monitor, the above changes are discussed with patient's nurse
[2019-02-12] MEDS: ENOXAPARIN 80 MG/0.8 ML INJ SUB-Q SCH (21:12)
[2019-02-13] MEDS: FUROSEMIDE 20 MG/2 ML INJ IV SCH (04:53)
--- NOTE | 2019-02-13 08:22 | Progress Note ---
Assessment and Plan Assessment and plan: -- Atrial fibrillation with rapid ventricular response Patient on oral amiodarone and lovenox Transition to Eliquis/Coumadin Patient is homeless, not sure if the patient will be compliant --Acute pulmonary embolism Patient initiated on IV heparin protocol Vascular evaluated ,no intervention needed --Left leg DVT; IV heparin protocol for DVT and PE --RUL masslike consolidation v. solid lesion CT chest findings to rule out any malignancy Pulmonary following --Acute systolic CHF (congestive heart failure) EF 40-45% Continue CHF medications, cardiology following --GERD (gastroesophageal reflux disease) On famotidine 20 twice daily --History of CVA (cerebrovascular accident) 3 months ago Physical therapy if necessary, check medical records from [place] --Schizophrenia: Continue current management --DVT prophylaxis Patient on heparin drip and GI prophylaxis Closely monitor and adjust management as needed Transition to Eliquis/ coumadin Patient is homeless on the streets Not sure if the patient can safely comply with long-term anticoagulation, Follow-up visits for close monitoring.. Case management to assist with discharge planning History Interval history: Patient seen and examined medical records reviewed Patient feels slightly better Reports that she is homeless and is on the streets Request placement residential versus correction Mild shortness of breath, patient denies chest pain Vital signs reviewed Hospitalist Physical - Constitutional Vitals: Temp Pulse Resp BP Pulse Ox 98.9 F 109 H 18 125/86 98 02/13/19 04:22 02/13/19 04:22 02/13/19 04:22 02/13/19 04:22 02/13/19 04:22 General appearance: Present: no acute distress, well-nourished, obese - EENT Eyes: Present: PERRL, EOM intact - Neck Neck: Present: supple, normal ROM - Respiratory Respiratory effort: normal Respiratory: bilateral: diminished, negative: rales, rhonchi, wheezing - Cardiovascular Rhythm: regular Heart Sounds: Present: S1 & S2 - Extremities Extremities: no ischemia, No edema - Abdominal General gastrointestinal: soft, non-tender, non-distended, normal bowel sounds - Integumentary Integumentary: Present: clear, warm - Psychiatric Psychiatric: appropriate mood/affect, cooperative - Neurologic Neurologic: moves all extremities Results - Labs CBC & Chem 7: 02/12/19 03:34 02/11/19 05:37 Labs: Laboratory Last Values WBC 3.7 K/mm3 (4.5-11.0) L 02/11/19 05:37 RBC 3.93 M/mm3 (3.65-5.03) 02/11/19 05:37 Hgb 13.4 gm/dl (10.1-14.3) 02/12/19 03:34 Hct 40.2 % (30.3-42.9) 02/12/19 03:34 MCV 96 fl (79-97) 02/11/19 05:37 MCH 33 pg (28-32) H 02/11/19 05:37 MCHC 34 % (30-34) 02/11/19 05:37 RDW 13.5 % (13.2-15.2) 02/11/19 05:37 Plt Count 125 K/mm3 (140-440) L 02/12/19 03:34 Lymph % (Auto) 46.1 % (13.4-35.0) H 02/11/19 05:37 [place] % (Auto) 12.1 % (0.0-7.3) H 02/11/19 05:37 Eos % (Auto) 2.6 % (0.0-4.3) 02/11/19 05:37 Baso % (Auto) 0.7 % (0.0-1.8) 02/11/19 05:37 Lymph # 1.6 K/mm3 (1.2-5.4) 02/11/19 05:37 [place] # 0.4 K/mm3 (0.0-0.8) 02/11/19 05:37 Eos # 0.1 K/mm3 (0.0-0.4) 02/11/19 05:37 Baso # 0.0 K/mm3 (0.0-0.1) 02/11/19 05:37 Seg Neutrophils % 38.5 % (40.0-70.0) L 02/11/19 05:37 Seg Neutrophils # 1.4 K/mm3 (1.8-7.7) L 02/11/19 05:37 PT 14.1 Sec. (12.2-14.9) 02/11/19 05:37 INR 1.08 (0.87-1.13) 02/11/19 05:37 APTT 28.3 Sec. (24.2-36.6) 02/11/19 05:37 Heparin Anti-Xa Level 0.50 U.I./ml (0.3-0.7) 02/11/19 12:24 Sodium 142 mmol/L (137-145) 02/11/19 05:37 Potassium 3.6 mmol/L (3.6-5.0) 02/11/19 05:37 Chloride 106.9 mmol/L (98-107) 02/11/19 05:37 Carbon Dioxide 22 mmol/L (22-30) 02/11/19 05:37 Anion Gap 17 mmol/L 02/11/19 05:37 BUN 14 mg/dL (7-17) 02/11/19 05:37 Creatinine 0.9 mg/dL (0.7-1.2) 02/11/19 05:37 Estimated GFR > 60 ml/min 02/11/19 05:37 BUN/Creatinine Ratio 16 % 02/11/19 05:37 Glucose 101 mg/dL (65-100) H 02/11/19 05:37 Hemoglobin A1c 5.2 % (4-6) 02/11/19 05:37 Calcium 9.1 mg/dL (8.4-10.2) 02/11/19 05:37 Magnesium 1.80 mg/dL (1.7-2.3) 02/10/19 08:36 Total Bilirubin 0.60 mg/dL (0.1-1.2) 02/11/19 05:37 AST 15 units/L (5-40) 02/11/19 05:37 ALT 12 units/L (7-56) 02/11/19 05:37 Alkaline Phosphatase 80 units/L (35-129) 02/11/19 05:37 Total Creatine Kinase 247 units/L (30-135) H 02/10/19 08:36 CK-MB (CK-2) 4.3 ng/mL (0.0-4.0) H 02/10/19 08:36 CK-MB (CK-2) Rel Index 1.7 (0-4) 02/10/19 08:36 Troponin T < 0.010 ng/mL (0.00-0.029) 02/10/19 08:36 NT-Pro-B Natriuret Pep 1554 pg/mL (0-900) H 02/10/19 08:36 Total Protein 6.4 g/dL (6.3-8.2) 02/11/19 05:37 Albumin 3.6 g/dL (3.9-5) L 02/11/19 05:37 Albumin/Globulin Ratio 1.3 % 02/11/19 05:37 TSH 1.540 mlU/mL (0.270-4.200) 02/10/19 08:36 Free T4 1.47 ng/dL (0.76-1.46) H 02/10/19 08:36 Active Medications - Current Medications Current Medications: Generic Name Dose Route Start Last Admin Trade Name Freq PRN Reason Stop Dose Admin Acetaminophen 650 mg 02/10/19 21:57 02/11/19 19:37 Tylenol PO 650 mg Q4H PRN Administration Pain MILD(1-3)/Fever >100.5/LORA Amiodarone HCl 400 mg 02/12/19 10:00 02/12/19 21:12 Cordarone PO 400 mg BID SINCERE Administration Enoxaparin Sodium 70 mg 02/12/19 22:00 02/12/19 21:12 Enoxaparin SUB-Q 70 mg Q12HR SINCERE Administration Famotidine 20 mg 02/10/19 22:00 02/12/19 21:12 Pepcid PO 20 mg BID SINCERE Administration Furosemide 20 mg 02/11/19 06:00 02/13/19 04:53 Lasix IV 20 mg 0600 SINCERE Administration Hydromorphone HCl 1 mg 02/10/19 21:57 Dilaudid IV Q3H PRN Pain , Severe (7-10) Metoclopramide HCl 10 mg 02/10/19 21:57 Reglan IV Q6H PRN Nausea And Vomiting Ondansetron HCl 4 mg 02/10/19 21:57 Zofran IV Q3H PRN Nausea And Vomiting Oxycodone/Acetaminophen 1 tab 02/10/19 21:57 Percocet 5/325 PO Q6H PRN Pain, Moderate (4-6) Potassium Chloride 10 meq 02/11/19 10:00 02/12/19 09:35 K-Dur PO 10 meq QDAY SINCERE Administration Sodium Chloride 10 ml 02/10/19 22:00 02/12/19 21:12 Sodium Chloride Flush Syringe 10 Ml IV 10 ml BID SINCERE Administration Sodium Chloride 10 ml 02/10/19 21:57 02/13/19 04:54 Sodium Chloride Flush Syringe 10 Ml IV 10 ml PRN PRN Administration LINE FLUSH Nutrition/Malnutrition Assess - Dietary Evaluation Nutrition/Malnutrition Findings: Nutrition Notes Start: 02/11/19 10:47 Freq: Status: Active Protocol: Document 02/11/19 10:47 CT (Rec: 02/11/19 10:55 CT [id number]) Co-Sign 02/11/19 10:47 LP Nutrition Notes Need for Assessment generated from: MD Order,drafting technician,MST Initial or Follow up Brief Note Current Diagnosis Heart Failure,Stroke Other Pertinent Diagnosis DVT, GERD, a-fib, PE, chronic leg pain, schizoprenia Current Diet Cardiac Labs/Tests Glu 101 Pertinent Medications Heparin 1/2NS 21 ml/hr Lasix Kdur Height 5 ft 4 in Weight 72.575 kg Usual Body Weight 72.575 kg [place] Body Weight (kg) 54.54 BMI 27.4 Intake Prior to Admission Good Weight Status Overweight Subjective/Other Information MD consult for malnutrition, RN MST screen. Pt stated UBW is 160 lbs, and has not noticed any wt loss. Pt was eating well LAW CLERK and ate 75% of breakfast this am. Pt was asking for double portions. Pt stated that she does not like ensure and did not want to receive anymore. Pt states that she has a good appetite and that "the hospital is not giving her enough food." Burn Absent Trauma Absent GI Symptoms None Food Allergy No Current % PO Good (75-100%) Minimum of two criteria No physical signs of malnutrition Nutrition Intervention Anticipated Discharge Needs: Cardiac Revisit per MD consult or patient Sign Off request:
[2019-02-13] MEDS: AMIODARONE 200 MG TAB PO SCH (09:46)
[2019-02-13] MEDS: ENOXAPARIN 80 MG/0.8 ML INJ SUB-Q SCH ×2 (09:47→21:57)
[2019-02-13] MEDS: FAMOTIDINE 20 MG TAB PO SCH ×2 (09:48→21:56)
[2019-02-13] MEDS: POTASSIUM CHLORIDE ER 10 MEQ TAB PO SCH (09:48)
--- NOTE | 2019-02-13 14:00 | Progress Note ---
Assessment and Plan Cardiac status is stable. Agree with transition to Eliquis. Will transition to PO Lasix and discontinue amiodarone. Continue other cardiac management. The patient has been seen in conjunction with Dr. Wolfe, who agrees with the assessment and plan. - Patient Problems (1) Acute pulmonary embolism Current Visit: Yes Status: Acute Qualifiers: Acute cor pulmonale presence: without acute cor pulmonale (2) Atrial fibrillation with rapid ventricular response Current Visit: Yes Status: Acute (3) Left leg DVT Current Visit: Yes Status: Acute Qualifiers: Affected thrombotic vein of extremity: femoral Chronicity: acute Qualified Code(s): I82.412 - Acute embolism and thrombosis of left femoral vein (4) Lung mass Current Visit: Yes Status: Acute Subjective Date of service: 02/13/19 Interval history: The patient is lying in bed in NAD. No complaints. Now in NSR on telemetry. Heparin drip stopped d/t lack of IV access - patient started on Lovenox by attending. Objective Last Vital Signs Temp 97.5 F L 02/13/19 08:46 Pulse 112 H 02/13/19 08:46 Resp 18 02/13/19 08:46 BP 138/106 02/13/19 08:46 Pulse Ox 98 02/13/19 04:22 - Physical Examination General: No Apparent Distress HEENT: Positive: PERRL, Normocephaly, Mucus Membranes Moist Neck: Positive: neck supple, trachea midline Cardiac: Positive: Reg Rate and Rhythm Lungs: Positive: Normal Exam Neuro: Positive: Grossly Intact Abdomen: Positive: Unremarkable. Negative: Tender /Rectal: Other (deferred) Skin: Positive: Clear. Negative: Rash Musculoskeletal: No Pain Extremities: Present: normal. Absent: edema - Imaging and Cardiology EKG: report reviewed, image reviewed Echo: report reviewed - Telemetry EKG Rhythm: Sinus Rhythm
--- NOTE | 2019-02-13 21:44 | Consultation ---
CONSULTING PHYSICIAN: Dr. Patel. REASON FOR CONSULTATION: Lung mass. CHIEF COMPLAINT AND HISTORY OF PRESENT ILLNESS: The patient is a now 63-year-old -[place] female with past medical history significant amongst other things for history of a deep venous thrombosis and schizophrenia for which she states she was treated with long-term anticoagulation and I believe most of her care at [facility]. She came into the Emergency Room complaining of sudden onset of chest tightness, really is what she calls me. It felt like somebody was pushing against her chest. She was walking down the hill when it happened. She denied any radiation. She denied any cough or expectoration. She denies any gross or streaky hemoptysis and in particular, she denied any pain or pleurisy. She thought she was having a heart attack. She denied nausea or vomiting. She denied diaphoresis. She came into the Emergency Room and was evaluated. As part of the evaluation, a CT angiogram was done. It showed right upper lobe segmental/subsegmental pulmonary thromboembolism and actually I do see something in left upper lobe branches. It also showed a right upper lobe mass-like consolidation/atelectasis/true lung mass involving the right upper lobe medially. We are asked to assist with management. When I stopped by to see her, she was resting in bed, very anxious. She was on IV heparin drip. She wanted to know if there was anything wrong with her heart. She denies any history of tobacco use or abuse whatsoever. She denies any new leg pain or swelling either unilaterally or bilaterally. She does have the chronic left lower extremity pain. Of note, she mentions to me that she had a CT scan done in [facility] a few months back sometimes this year for lung mass or something in her lungs at the top of her right lung that they were looking at. This is as much of the history of presentation as I have. PAST MEDICAL HISTORY: Cerebrovascular accident, history of a DVT, history of gastroesophageal reflux disease, history of schizophrenia, history of atrial fibrillation and chronic leg pain. PAST SURGICAL HISTORY: She denies. MEDICATIONS: She was on at the time I stopped by to see were reviewed, pertinent medications include the following: Tylenol 650 mg p.o. q. 4 hours p.r.n. mild pain or fevers, amiodarone 400 mg p.o. b.i.d., Pepcid 20 mg p.o. b.i.d., Lasix 20 mg IV daily. Morphine 1 mg IV q. 3 hours p.r.n. severe pain, heparin drip was going at 1200 units per hour and adjusted per the PE protocol. She seems like she had also been on an amiodarone drip. Reglan 10 mg IV q. 6 hours p.r.n. nausea and vomiting, Percocet 5/325 mg 1 tablet p.o. q. 6 hours p.r.n. moderate pain, potassium chloride 10 mEq p.o. daily. ALLERGIES: No known drug allergies. DIET: Well-built lady. Denies acute weight loss or gain in the preceding few weeks to months. FAMILY AND SOCIAL HISTORY: Lives in the community. She denies alcohol, tobacco, illicit drug use or abuse whatsoever. Otherwise, she is not sure about her family history. She denies any history of childhood pneumonia or prior history of abnormal chest x-ray apart from as mentioned above. REVIEW OF SYSTEMS: No loss of consciousness. No new onset seizures. No new onset focal weakness. No gross hematochezia or melena. No gross hematuria or dysuria. No hematemesis. No hemoptysis, no palpitations. Complete 13-system review of systems obtained. Pertinent positives and/or negatives as in body of history above, otherwise they are noncontributory. PHYSICAL EXAMINATION: VITAL SIGNS: On examination at presentation in the Emergency Room, vital signs, she was afebrile, temperature 98.1 degrees Fahrenheit, pulse of 137, respiratory rate of 20, blood pressure 152/97, O2 sats were 98% when I saw her on room air. GENERAL: She is a well-built -[place] female elderly looking. Normocephalic, atraumatic, talking to me in full sentences without significant respiratory distress at rest. HEAD, EYES, EARS, NOSE AND THROAT: She is anicteric. No conjunctival erythema. Oropharynx is moist. Mallampati #2 oropharynx. No gross jugular venous distention. No thyromegaly. NECK: Grossly, there were no palpable lymph nodes in the supraclavicular or submandibular lymph node chains. LUNGS: Auscultation of both lung amanda, in particular in the upper zones on the right side in particular she had some rhonchi. Slightly diminished bilateral breath sounds, no wheezing. HEART: Heart sounds 1 and 2 are heard. They were regular in rate and rhythm at the time of my evaluation without overt rubs or murmurs. ABDOMEN: Soft, flat. Bowel sounds are positive, nontender, no palpable hepatosplenomegaly. EXTREMITIES: Without overt digital clubbing, no cyanosis, no pedal edema. Pedal pulses were 2+ bilaterally. NEUROLOGIC: Pupils were equal, round, about 4 mm, reactive to light. Extraocular muscle movements were intact. She moves all 4 extremities spontaneously. SKIN: Normal turgor without overt cellulitis or rash. PSYCHIATRIC: Her mood was normal. Affect was appropriate. She showed intact judgment and insight. I should mention she was a little anxious about whether there was anything going on with her heart. LABORATORY DATA: From my review are as follows: White cell count 4100, hemoglobin 14.7. These are all presentation labs. Hematocrit 43.7, platelet count was 123. No manual differential. INR within normal limits. Serum sodium was 142, potassium 3.9, chloride 101, bicarbonate 21, BUN 11, creatinine 0.7, glucose was 89. Magnesium 1.8. CPK was elevated at 247. Troponin within normal limits. BNP was elevated at 1554. TSH was within normal limits. No microbiology studies. I have reviewed the CT angio as described above. It shows filling defects in the subsegmental branches of the left upper lobe and right upper lobe. Then it shows this mass-like consolidation running medially paratracheal and around the right hilum. There is also evidence of bullous lung disease involving the upper airways. There is significant motion artifact. She does also have some biapical scarring. No gross pneumothorax, no gross bony fracture. ASSESSMENT: 1. Acute pulmonary embolism. 2. Abnormal CT scan with a right upper lobe mass/consolidation/rounded atelectasis. 3. History of schizophrenia. 4. History of deep venous thrombosis. 5. Gastroesophageal reflux disease. 6. History of cerebrovascular accident. 7. Atrial fibrillation. 8. Chronic leg pain. 9. Mild metabolic acidosis at presentation. 10. Leukopenia. 11. Thrombocytopenia. 12. Elevated BNP. PLAN: I think the first thing to do would be to try and get the records from [place] if this was really within this year and maybe about 6 months ago we will be able to compare and see if there is any change in this area as I do think we are dealing with a benign lesion in this lifelong nonsmoker; however, we cannot rule out a pathology like a lung cancer. After review of the [place] records, further management decisions will be made. No acute indication without review of those records for biopsy at this point especially with her just having an acute PE and on full anticoagulation. She denies any significant weight loss. She denies any new onset focal weakness. She denies any new lumps, bumps, or swellings or any suggestion of metastatic disease. I have encouraged continued tobacco abstinence. We will continue anticoagulation for the acute PE. Technically, she may need to be on lifelong anticoagulation at this point. She is appropriately also on GI prophylaxis. She is being diuresed. We will defer to Cardiology for further management of her cardiac symptoms. A 2D echocardiogram thankfully has been done and it does not show any significant evidence of right ventricular strain. The ejection fraction is low at 40-45% as well as with diastolic heart failure. Gentle diuresis will be continued. Flu and pneumonia vaccination will be addressed per protocol. Thank you very much for the consult. We will follow along. We will make further recommendations as picture progresses/becomes clearer. JOB# [id number] JASON/TRENTON
[2019-02-14] MEDS: FUROSEMIDE 20 MG TAB PO SCH (05:20)
--- NOTE | 2019-02-14 10:27 | Progress Note ---
Assessment and Plan Cardiac status is stable. The patient may be discharged to rehab from our perspective on current regimen. Follow up with Dr. Marks in 1-2 weeks ([phone]). The patient has been seen in conjunction with Dr. Barrientos, who agrees with the assessment and plan. - Patient Problems (1) Acute pulmonary embolism Current Visit: Yes Status: Acute Qualifiers: Acute cor pulmonale presence: without acute cor pulmonale (2) Atrial fibrillation with rapid ventricular response Current Visit: Yes Status: Acute (3) Left leg DVT Current Visit: Yes Status: Acute Qualifiers: Affected thrombotic vein of extremity: femoral Chronicity: acute Qualified Code(s): I82.412 - Acute embolism and thrombosis of left femoral vein (4) Lung mass Current Visit: Yes Status: Acute Subjective Date of service: 02/14/19 Interval history: The patient is lying in bed in NAD. No cardiac complaints. SR in 70s with occasional PACs and PVCs. Objective Last Vital Signs Temp 98.4 F 02/14/19 08:06 Pulse 64 02/14/19 08:06 Resp 18 02/14/19 08:06 BP 114/73 02/14/19 08:06 Pulse Ox 98 02/14/19 08:06 - Physical Examination General: No Apparent Distress HEENT: Positive: PERRL, Normocephaly, Mucus Membranes Moist Neck: Positive: neck supple, trachea midline Cardiac: Positive: Reg Rate and Rhythm Lungs: Positive: Normal Exam Neuro: Positive: Grossly Intact Abdomen: Positive: Unremarkable. Negative: Tender /Rectal: Other (deferred) Skin: Positive: Clear. Negative: Rash Musculoskeletal: No Pain Extremities: Present: normal. Absent: edema - Imaging and Cardiology EKG: report reviewed, image reviewed Echo: report reviewed
[2019-02-14] MEDS: ENOXAPARIN 80 MG/0.8 ML INJ SUB-Q SCH ×2 (12:16→22:09)
[2019-02-14] MEDS: POTASSIUM CHLORIDE ER 10 MEQ TAB PO SCH (12:18)
[2019-02-14] MEDS: FAMOTIDINE 20 MG TAB PO SCH ×2 (12:18→22:09)
--- NOTE | 2019-02-14 14:16 | Progress Note ---
Assessment and Plan Patient is alert, awake, and resting on room air. No complaints of chest pain, SOB. Complaining of slight cough. patient o2 saturation is 98% on room air. Patient is afebrile with no leukocytosis. - Patient Problems (1) Left leg DVT Current Visit: Yes Status: Acute Qualifiers: Affected thrombotic vein of extremity: femoral Chronicity: acute Qualified Code(s): I82.412 - Acute embolism and thrombosis of left femoral vein Plan to address problem: Patient is on subq lovenox 70 mg q12hrs and also started on apixiban (2) Acute pulmonary embolism Current Visit: Yes Status: Acute Qualifiers: Acute cor pulmonale presence: without acute cor pulmonale Plan to address problem: Patient is on subq lovenox 70 mg q12hrs and also started on apixaban (3) Atrial fibrillation with rapid ventricular response Current Visit: Yes Status: Acute Plan to address problem: Patient is on apixaban Management as per cardiology (4) CHF (congestive heart failure) Current Visit: Yes Status: Chronic Qualifiers: Heart failure type: combined systolic and diastolic Plan to address problem: management as per primary care and cardiology (5) GERD (gastroesophageal reflux disease) Current Visit: Yes Status: Chronic Qualifiers: Esophagitis presence: without esophagitis Qualified Code(s): K21.9 - Gastro-esophageal reflux disease without esophagitis Plan to address problem: Patient is on Famotidine (6) History of CVA (cerebrovascular accident) Current Visit: Yes Status: Chronic Plan to address problem: management as per primary care Subjective Date of service: 02/14/19 Interval history: Patient is alert, awake, and resting on room air. No complaints of chest pain, SOB. Complaining of slight cough. patient o2 saturation is 98% on room air. Patient is afebrile with no leukocytosis. Objective Vital Signs - 12hr 02/14/19 02/14/19 02/14/19 03:28 08:06 12:43 Temperature 98.3 F 98.4 F 98.5 F Pulse Rate 67 64 59 L Respiratory 16 18 18 Rate Blood Pressure 136/73 114/73 100/77 O2 Sat by Pulse 95 98 96 Oximetry Constitutional: no acute distress, alert Eyes: non-icteric ENT: oropharynx moist Neck: supple Effort: normal Ascultation: Bilateral: rhonchi (occasional) Cardiovascular: regular rate and rhythm Gastrointestinal: normoactive bowel sounds, soft Integumentary: normal Extremities: no cyanosis, no edema Neurologic: normal mental status, non-focal exam, pupils equal and round Psychiatric: other (affect somewhat flat) CBC and BMP: 02/12/19 03:34 02/11/19 05:37 ABG, PT/INR, D-dimer: PT/INR, D-dimer PT 14.1 Sec. (12.2-14.9) 02/11/19 05:37 INR 1.08 (0.87-1.13) 02/11/19 05:37 Abnormal lab findings: Abnormal Labs 02/10/19 02/10/19 02/10/19 08:36 08:36 08:36 WBC 4.1 L Hgb 14.7 H Hct 43.7 H MCH Plt Count 123 L Lymph % (Auto) [place] % (Auto) 7.6 H Seg Neutrophils % Seg Neutrophils # Heparin Anti-Xa Level Carbon Dioxide 21 L Glucose Total Creatine Kinase 247 H CK-MB (CK-2) 4.3 H NT-Pro-B Natriuret Pep 1554 H Albumin Free T4 1.47 H 02/11/19 02/11/19 02/11/19 05:37 05:37 05:37 WBC 3.7 L Hgb Hct MCH 33 H Plt Count 113 L Lymph % (Auto) 46.1 H [place] % (Auto) 12.1 H Seg Neutrophils % 38.5 L Seg Neutrophils # 1.4 L Heparin Anti-Xa Level 0.11 L Carbon Dioxide Glucose 101 H Total Creatine Kinase CK-MB (CK-2) NT-Pro-B Natriuret Pep Albumin 3.6 L Free T4 02/11/19 02/12/19 12:24 03:34 WBC Hgb Hct MCH Plt Count 117 L 125 L Lymph % (Auto) [place] % (Auto) Seg Neutrophils % Seg Neutrophils # Heparin Anti-Xa Level Carbon Dioxide Glucose Total Creatine Kinase CK-MB (CK-2) NT-Pro-B Natriuret Pep Albumin Free T4 CT scan - chest: report reviewed, image reviewed Prior PFT's, U/S of legs: report reviewed (eXTENSIVE LEFT LOWER LEG THROMBOSIS.), image reviewed Additional Studies: ct OF CHEST DONE ON 02/10/19 IMPRESSION: 1. Right upper lobe segmental/subsegmental PTE without CT evidence of right heart strain. 2. Right upper lobe masslike consolidation versus a true solid lesion is no nspecific. Considerations include an evolving infarction, pneumonia and malignancy. Please correlate with the c linical findings. 3. 8 mm right lower lobe nodule as above. A follow-up CT of the chest without contrast in 6 months is recommended. 4. Additional findings as above.
--- NOTE | 2019-02-14 15:26 | Progress Note ---
Assessment and Plan Assessment and plan: The pt is a 63-year-old female with history of CVA, deep vein thrombosis, GERD and schizophrenia presented with c/o chest pain for approx 1 day prior to arrival. Chest CTA shows RUL PE and RUL masslike consolidation v. solid lesion. Also found to have LLE DVT. Pt was noted to have atrial fibrillation with RVR and initiated on heparin gtt and amio gtt. switch to oral amiodarone and s/c lovenox. Transition to Eliquis -- Atrial fibrillation with rapid ventricular response Patient on oral amiodarone and lovenox Will Transition to Eliquis Patient is homeless, not sure if the patient will be compliant --Acute pulmonary embolism Patient initiated on Lovenox Vascular evaluated ,no intervention needed Transition to Eliquis --Left leg DVT; Lovenox,transition to Eliquis --RUL masslike consolidation v. solid lesion CT chest findings to rule out any malignancy Pulmonary following --Acute systolic CHF (congestive heart failure) EF 40-45% Continue CHF medications, cardiology following --GERD (gastroesophageal reflux disease) On famotidine 20 twice daily --History of CVA (cerebrovascular accident) 3 months ago No residual weakness --Schizophrenia: Continue current management --DVT prophylaxis Patient on heparin drip and GI prophylaxis Closely monitor and adjust management as needed Transition to Eliquis/ coumadin Patient is homeless on the streets Not sure if the patient can safely comply with long-term anticoagulation, Follow-up visits for close monitoring. Case management to assist with discharge planning Disposition; discharged in 1-2 days if stable History Interval history: Patient seen and examined medical records reviewed Patient feels slightly better receiving Lovenox full dose for PE DVT and A. fib, We'll transition to lEliquis Patient is comfortable not in acute distress Vital signs reviewed Hospitalist Physical - Constitutional Vitals: Temp Pulse Resp BP Pulse Ox 98.5 F 59 L 18 100/77 96 02/14/19 12:43 02/14/19 12:43 02/14/19 12:43 02/14/19 12:43 02/14/19 12:43 General appearance: Present: no acute distress, well-nourished, obese - EENT Eyes: Present: PERRL, EOM intact - Neck Neck: Present: supple, normal ROM - Respiratory Respiratory effort: normal Respiratory: bilateral: diminished, negative: rales, rhonchi, wheezing - Cardiovascular Rhythm: regular Heart Sounds: Present: S1 & S2 - Extremities Extremities: no ischemia, No edema - Abdominal General gastrointestinal: soft, non-tender, non-distended, normal bowel sounds - Integumentary Integumentary: Present: clear, warm - Psychiatric Psychiatric: appropriate mood/affect, cooperative - Neurologic Neurologic: moves all extremities Results - Labs CBC & Chem 7: 02/12/19 03:34 02/11/19 05:37 Labs: Laboratory Last Values WBC 3.7 K/mm3 (4.5-11.0) L 02/11/19 05:37 RBC 3.93 M/mm3 (3.65-5.03) 02/11/19 05:37 Hgb 13.4 gm/dl (10.1-14.3) 02/12/19 03:34 Hct 40.2 % (30.3-42.9) 02/12/19 03:34 MCV 96 fl (79-97) 02/11/19 05:37 MCH 33 pg (28-32) H 02/11/19 05:37 MCHC 34 % (30-34) 02/11/19 05:37 RDW 13.5 % (13.2-15.2) 02/11/19 05:37 Plt Count 125 K/mm3 (140-440) L 02/12/19 03:34 Lymph % (Auto) 46.1 % (13.4-35.0) H 02/11/19 05:37 [place] % (Auto) 12.1 % (0.0-7.3) H 02/11/19 05:37 Eos % (Auto) 2.6 % (0.0-4.3) 02/11/19 05:37 Baso % (Auto) 0.7 % (0.0-1.8) 02/11/19 05:37 Lymph # 1.6 K/mm3 (1.2-5.4) 02/11/19 05:37 [place] # 0.4 K/mm3 (0.0-0.8) 02/11/19 05:37 Eos # 0.1 K/mm3 (0.0-0.4) 02/11/19 05:37 Baso # 0.0 K/mm3 (0.0-0.1) 02/11/19 05:37 Seg Neutrophils % 38.5 % (40.0-70.0) L 02/11/19 05:37 Seg Neutrophils # 1.4 K/mm3 (1.8-7.7) L 02/11/19 05:37 PT 14.1 Sec. (12.2-14.9) 02/11/19 05:37 INR 1.08 (0.87-1.13) 02/11/19 05:37 APTT 28.3 Sec. (24.2-36.6) 02/11/19 05:37 Heparin Anti-Xa Level 0.50 U.I./ml (0.3-0.7) 02/11/19 12:24 Sodium 142 mmol/L (137-145) 02/11/19 05:37 Potassium 3.6 mmol/L (3.6-5.0) 02/11/19 05:37 Chloride 106.9 mmol/L (98-107) 02/11/19 05:37 Carbon Dioxide 22 mmol/L (22-30) 02/11/19 05:37 Anion Gap 17 mmol/L 02/11/19 05:37 BUN 14 mg/dL (7-17) 02/11/19 05:37 Creatinine 0.9 mg/dL (0.7-1.2) 02/11/19 05:37 Estimated GFR > 60 ml/min 02/11/19 05:37 BUN/Creatinine Ratio 16 % 02/11/19 05:37 Glucose 101 mg/dL (65-100) H 02/11/19 05:37 Hemoglobin A1c 5.2 % (4-6) 02/11/19 05:37 Calcium 9.1 mg/dL (8.4-10.2) 02/11/19 05:37 Magnesium 1.80 mg/dL (1.7-2.3) 02/10/19 08:36 Total Bilirubin 0.60 mg/dL (0.1-1.2) 02/11/19 05:37 AST 15 units/L (5-40) 02/11/19 05:37 ALT 12 units/L (7-56) 02/11/19 05:37 Alkaline Phosphatase 80 units/L (35-129) 02/11/19 05:37 Total Creatine Kinase 247 units/L (30-135) H 02/10/19 08:36 CK-MB (CK-2) 4.3 ng/mL (0.0-4.0) H 02/10/19 08:36 CK-MB (CK-2) Rel Index 1.7 (0-4) 02/10/19 08:36 Troponin T < 0.010 ng/mL (0.00-0.029) 02/10/19 08:36 NT-Pro-B Natriuret Pep 1554 pg/mL (0-900) H 02/10/19 08:36 Total Protein 6.4 g/dL (6.3-8.2) 02/11/19 05:37 Albumin 3.6 g/dL (3.9-5) L 02/11/19 05:37 Albumin/Globulin Ratio 1.3 % 02/11/19 05:37 TSH 1.540 mlU/mL (0.270-4.200) 02/10/19 08:36 Free T4 1.47 ng/dL (0.76-1.46) H 02/10/19 08:36 Active Medications - Current Medications Current Medications: Generic Name Dose Route Start Last Admin Trade Name Freq PRN Reason Stop Dose Admin Acetaminophen 650 mg 02/10/19 21:57 02/11/19 19:37 Tylenol PO 650 mg Q4H PRN Administration Pain MILD(1-3)/Fever >100.5/LORA Enoxaparin Sodium 70 mg 02/12/19 22:00 02/14/19 12:16 Enoxaparin SUB-Q Not Given Q12HR [facility] Famotidine 20 mg 02/10/19 22:00 02/14/19 12:18 Pepcid PO 20 mg BID SINCERE Administration Furosemide 20 mg 02/14/19 06:00 02/14/19 05:20 Lasix PO 20 mg DAILY@0600 SICNERE Administration Hydromorphone HCl 1 mg 02/10/19 21:57 Dilaudid IV Q3H PRN Pain , Severe (7-10) Metoclopramide HCl 10 mg 02/10/19 21:57 Reglan IV Q6H PRN Nausea And Vomiting Ondansetron HCl 4 mg 02/10/19 21:57 Zofran IV Q3H PRN Nausea And Vomiting Oxycodone/Acetaminophen 1 tab 02/10/19 21:57 Percocet 5/325 PO Q6H PRN Pain, Moderate (4-6) Potassium Chloride 10 meq 02/11/19 10:00 02/14/19 12:18 K-Dur PO 10 meq QDAY SINCERE Administration Sodium Chloride 10 ml 02/10/19 22:00 02/14/19 12:19 Sodium Chloride Flush Syringe 10 Ml IV 10 ml BID SINCERE Administration Sodium Chloride 10 ml 02/10/19 21:57 02/13/19 04:54 Sodium Chloride Flush Syringe 10 Ml IV 10 ml PRN PRN Administration LINE FLUSH Nutrition/Malnutrition Assess - Dietary Evaluation Nutrition/Malnutrition Findings: Nutrition Notes Start: 02/11/19 10:47 Freq: Status: Active Protocol: Document 02/11/19 10:47 CT (Rec: 02/11/19 10:55 CT [id number]) Co-Sign 02/11/19 10:47 LP Nutrition Notes Need for Assessment generated from: MD Order,in store banker,MST Initial or Follow up Brief Note Current Diagnosis Heart Failure,Stroke Other Pertinent Diagnosis DVT, GERD, a-fib, PE, chronic leg pain, schizoprenia Current Diet Cardiac Labs/Tests Glu 101 Pertinent Medications Heparin 1/2NS 21 ml/hr Lasix Kdur Height 5 ft 4 in Weight 72.575 kg Usual Body Weight 72.575 kg [place] Body Weight (kg) 54.54 BMI 27.4 Intake Prior to Admission Good Weight Status Overweight Subjective/Other Information MD consult for malnutrition, RN MST screen. Pt stated UBW is 160 lbs, and has not noticed any wt loss. Pt was eating well [employer] and ate 75% of breakfast this am. Pt was asking for double portions. Pt stated that she does not like ensure and did not want to receive anymore. Pt states that she has a good appetite and that "the hospital is not giving her enough food." Burn Absent Trauma Absent GI Symptoms None Food Allergy No Current % PO Good (75-100%) Minimum of two criteria No physical signs of malnutrition Nutrition Intervention Anticipated Discharge Needs: Cardiac Revisit per MD consult or patient Sign Off request:
[2019-02-14 22:05] LABS: Hemoglobin 12.9 gm/dl (10.1-14.3)
[2019-02-15 04:33] VITALS: BP 112/64
[2019-02-15] MEDS: FUROSEMIDE 20 MG TAB PO SCH (05:35)
[2019-02-15] MEDS: POTASSIUM CHLORIDE ER 10 MEQ TAB PO SCH (09:51)
[2019-02-15] MEDS: FAMOTIDINE 20 MG TAB PO SCH (09:51)
[2019-02-15] MEDS ORDERED: APIXABAN 5 MG TAB PO SCH (10:00)
--- NOTE | 2019-02-15 12:39 | Progress Note ---
Assessment and Plan Patient is alert, awake, and resting on room air. No complaints of chest pain, SOB or cough. patient o2 saturation is 100% on room air. No respiratory distress at rest. Patient is afebrile with no leukocytosis. Primary care said patient may discharge to day. Patient has work up on right upper lobe density at [facility]. Strongly recommend follow at [facility] on right upper lobe density and on thromboembolism. . - Patient Problems (1) Left leg DVT Current Visit: Yes Status: Acute Qualifiers: Affected thrombotic vein of extremity: femoral Chronicity: acute Qualified Code(s): I82.412 - Acute embolism and thrombosis of left femoral vein Plan to address problem: Patient is on subq lovenox 70 mg q12hrs and also started on apixiban (2) Acute pulmonary embolism Current Visit: Yes Status: Acute Qualifiers: Acute cor pulmonale presence: without acute cor pulmonale Plan to address problem: Patient is on subq lovenox 70 mg q12hrs and also started on apixaban (3) Atrial fibrillation with rapid ventricular response Current Visit: Yes Status: Acute Plan to address problem: Patient is on apixaban Management as per cardiology (4) CHF (congestive heart failure) Current Visit: Yes Status: Chronic Qualifiers: Heart failure type: combined systolic and diastolic Plan to address problem: management as per primary care and cardiology (5) GERD (gastroesophageal reflux disease) Current Visit: Yes Status: Chronic Qualifiers: Esophagitis presence: without esophagitis Qualified Code(s): K21.9 - Gastro-esophageal reflux disease without esophagitis Plan to address problem: Patient is on Famotidine (6) History of CVA (cerebrovascular accident) Current Visit: Yes Status: Chronic Plan to address problem: management as per primary care Subjective Date of service: 02/15/19 Interval history: Patient is alert, awake, and resting on room air. No complaints of chest pain, SOB or cough. patient o2 saturation is 100% on room air. No respiratory distress at rest. Patient is afebrile with no leukocytosis. Primary care said patient may discharge to day. Patient has work up on right upper lobe density at [facility]. Strongly recommend follow at [facility] on right upper lobe density and on thromboembolism. Objective Vital Signs - 12hr 02/15/19 03:08 Temperature 97.8 F Pulse Rate 57 L Respiratory 16 Rate Blood Pressure 112/64 O2 Sat by Pulse 100 Oximetry Constitutional: no acute distress, alert Eyes: non-icteric ENT: oropharynx moist Neck: supple Effort: normal Ascultation: Bilateral: rhonchi (occasional) Cardiovascular: regular rate and rhythm Gastrointestinal: normoactive bowel sounds, soft Integumentary: normal Extremities: no cyanosis, no edema Neurologic: normal mental status, non-focal exam, pupils equal and round Psychiatric: other (affect somewhat flat) CBC and BMP: 02/14/19 21:39 02/11/19 05:37 ABG, PT/INR, D-dimer: PT/INR, D-dimer PT 14.1 Sec. (12.2-14.9) 02/11/19 05:37 INR 1.08 (0.87-1.13) 02/11/19 05:37 Abnormal lab findings: Abnormal Labs 02/10/19 02/10/19 02/10/19 08:36 08:36 08:36 WBC 4.1 L Hgb 14.7 H Hct 43.7 H MCH Plt Count 123 L Lymph % (Auto) [place] % (Auto) 7.6 H Seg Neutrophils % Seg Neutrophils # Heparin Anti-Xa Level Carbon Dioxide 21 L Glucose Total Creatine Kinase 247 H CK-MB (CK-2) 4.3 H NT-Pro-B Natriuret Pep 1554 H Albumin Free T4 1.47 H 02/11/19 02/11/19 02/11/19 05:37 05:37 05:37 WBC 3.7 L Hgb Hct MCH 33 H Plt Count 113 L Lymph % (Auto) 46.1 H [place] % (Auto) 12.1 H Seg Neutrophils % 38.5 L Seg Neutrophils # 1.4 L Heparin Anti-Xa Level 0.11 L Carbon Dioxide Glucose 101 H Total Creatine Kinase CK-MB (CK-2) NT-Pro-B Natriuret Pep Albumin 3.6 L Free T4 02/11/19 02/12/19 12:24 03:34 WBC Hgb Hct MCH Plt Count 117 L 125 L Lymph % (Auto) [place] % (Auto) Seg Neutrophils % Seg Neutrophils # Heparin Anti-Xa Level Carbon Dioxide Glucose Total Creatine Kinase CK-MB (CK-2) NT-Pro-B Natriuret Pep Albumin Free T4
--- NOTE | 2019-02-15 14:45 | Discharge Summary ---
Providers - Providers Date of Admission: 02/10/19 11:29 Date of discharge: 02/15/19 Attending physician: JACKSON XIONG 02/10/19 21:03 Consult to Dietitian/Nutrition [CONS] Routine Physician Instructions: Reason For Exam: Reason for Consult: Malnutrition 02/10/19 21:57 Consult to Physician [CONS] Routine Comment: Consulting Provider: TORRES LOPEZ Physician Instructions: Reason For Exam: Acute PE/DVT 02/10/19 22:10 Consult to Physician [CONS] Routine Comment: Consulting Provider: LISA ORELLANA Physician Instructions: Reason For Exam: A. fib with RVR, CHF 02/11/19 14:51 Consult to Physician [CONS] Routine Comment: Consulting Provider: BRIDGER SHELDON Physician Instructions: Reason For Exam: right upper lobe mass Primary care physician: LARRY OPERATOR Hospitalization Condition: Fair Hospital course: The pt is a 63-year-old female with history of CVA, deep vein thrombosis, GERD and schizophrenia presented with c/o chest pain for approx 1 day prior to arrival. Chest CTA shows RUL PE and RUL masslike consolidation v. solid lesion. Also found to have LLE DVT. Pt was noted to have atrial fibrillation with RVR and initiated on heparin gtt and amio gtt, switch to oral amiodarone and s/c lovenox. Noted record from [facility] she takes xarelto and she has that at home. She noted bradycardic, so amioderone discontinued. She was then adviced to resume xarelto, she will f/u at [facility] outpt. But patient did not wait and left w/o any prescription. Discharge diagnosis and Mx: / Atrial fibrillation with rapid ventricular response Patient placed on oral amiodarone and lovenox, later discontinued Patient is homeless, and she is noncompliant per history But she f/u at [facility] outpt per record She was taking xarelto before presenting to [facility] and states she has some at home and can get refil from [facility] She was discharged then on xarelto, NO BB or abigail blocking prescribed as she was bradycardic /Acute pulmonary embolism Patient initiated on Lovenox Vascular evaluated, no intervention needed Transition to Xarelto /Left leg DVT; cont xarelto /-RUL masslike consolidation v. 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 /-Acute systolic CHF (congestive heart failure) EF 40-45% Continue CHF medications, cardiology was following /-GERD (gastroesophageal reflux disease) On famotidine 20 twice daily /History of CVA (cerebrovascular accident) 3 months ago No residual weakness / h/o-Schizophrenia: noted no hallucination f/u at [facility] psych outpt Disposition; home with f/u at [facility] Hospitalist Physical General appearance: Present: no acute distress, well-nourished, obese - EENT Eyes: Present: PERRL, EOM intact - Neck Neck: Present: supple, normal ROM - Respiratory Respiratory effort: normal Respiratory: bilateral: diminished, negative: rales, rhonchi, wheezing - Cardiovascular Rhythm: regular Heart Sounds: Present: S1 & S2 - Extremities Extremities: no ischemia, No edema - Abdominal General gastrointestinal: soft, non-tender, non-distended, normal bowel sounds - Integumentary Integumentary: Present: clear, warm - Psychiatric Psychiatric: appropriate mood/affect, cooperative - Neurologic Neurologic: moves all extremities Disposition: DC- TO HOME OR SELFCARE Time spent for discharge: 34 minutes Core Measure Documentation - Palliative Care Palliative Care/ Comfort Measures: Not Applicable - Core Measures Any of the following diagnoses?: heart failure - Heart Failure Discharge Requirements SAY/ARB for LVSD if EF <40%: Not Applicable Beta maged at discharge: No Reason for no beta maged on DC: Hypotension Exam - Constitutional Vitals: Temp Pulse Resp BP Pulse Ox 97.8 F 57 L 16 112/64 100 02/15/19 03:08 02/15/19 03:08 02/15/19 03:08 02/15/19 03:08 02/15/19 03:08 Plan Activity: advance as tolerated Weight Bearing Status: Weight Bear as Tolerated Diet: low fat, low salt Follow up with: PRIMARY CARE, [Primary Care Provider] - 3-5 Days Prescriptions: AtorvaSTATin [Lipitor] 40 mg PO QHS #30 tab Furosemide [Lasix TAB] 20 mg PO DAILY@0600 #30 tablet Rivaroxaban [Xarelto] 20 mg PO QDAY #30 tab
[2019-02-22] MEDS ORDERED: APIXABAN 5 MG TAB PO SCH (10:00)
== END 2019-02-15 14:50 | disposition home or self-care (01) | DRG 175 ==
LOC: ED 07:43 → 4A 11:29
PROVIDERS: ADMIT Internal Medicine; ATTEND Internal Medicine
DX: I26.99 Other pulmonary embolism without acute cor pulmonale (principal); I50.41 Acute combined systolic (congestive) and diastolic (congestive) heart failure; I82.412 Acute embolism and thrombosis of left femoral vein; I48.91 Unspecified atrial fibrillation; K21.9 Gastro-esophageal reflux disease without esophagitis; F20.9 Schizophrenia, unspecified; I11.0 Hypertensive heart disease with heart failure; E87.2 Acidosis; D72.819 Decreased white blood cell count, unspecified; D69.6 Thrombocytopenia, unspecified; R91.8 Other nonspecific abnormal finding of lung field; I42.9 Cardiomyopathy, unspecified; Z86.73 Personal history of transient ischemic attack (TIA), and cerebral infarction without residual deficits; Z86.718 Personal history of other venous thrombosis and embolism
CPT/HCPCS: 36415; 71275; 80048; 80053; 82550; 82553; 83036; 83735; 83880; 84439; 84443; 84484; 85014; 85018; 85025; 85049; 85520; 85610; 85730; 93005; 93010; 93306; G0378; J0282; J1644; J1650; J1940; J7060; Q9967